=== PATIENT | male | born 1955 | race Caucasian/White ===

== ENCOUNTER 2020-03-04 04:35 | Outpatient (REF) | payer MEDICARE, MEDICAID, SELFPAY ==
[2020-03-04 10:43] LABS: INTERNATIONAL NORM RATIO 4.7 (0.9-1.1); Prothrombin Time 57.2 SEC (10.8-13.0)
== END 2020-03-04 04:36 | disposition home or self-care (01) ==
LOC: HO.LHD 04:35
PROVIDERS: Visit Provider Internal Medicine
DX: I82.90 Acute embolism and thrombosis of unspecified vein (principal); Z79.01 Long term (current) use of anticoagulants
CPT/HCPCS: 36415; 85610

== ENCOUNTER 2020-03-05 02:25 | Outpatient (REF) | payer MEDICARE, MEDICAID, SELFPAY ==
[2020-03-05 11:35] LABS: INTERNATIONAL NORM RATIO 4.5 (0.9-1.1); Prothrombin Time 54.3 SEC (10.8-13.0)
== END 2020-03-05 02:26 | disposition home or self-care (01) ==
LOC: HO.LHD 02:25
PROVIDERS: Visit Provider Internal Medicine
DX: I82.90 Acute embolism and thrombosis of unspecified vein (principal)
CPT/HCPCS: 36415; 85610

== ENCOUNTER 2020-03-08 | Outpatient (REF) | payer MEDICARE, MEDICAID, OTHER, SELFPAY ==
[2020-03-08 11:11] LABS: INTERNATIONAL NORM RATIO 2.4 (0.9-1.1); Prothrombin Time 28.8 SEC (10.8-13.0)
== END 2020-03-08 00:01 | disposition home or self-care (01) ==
LOC: HO.LHD
PROVIDERS: Visit Provider Internal Medicine
DX: I82.90 Acute embolism and thrombosis of unspecified vein (principal)
CPT/HCPCS: 36415; 85610

== ENCOUNTER 2020-03-15 07:54 | Outpatient (REF) | payer MEDICARE, MEDICAID, SELFPAY ==
[2020-03-15 11:06] LABS: INTERNATIONAL NORM RATIO 4.2 (0.9-1.1); Prothrombin Time 50.4 SEC (10.8-13.0)
== END 2020-03-15 07:55 | disposition home or self-care (01) ==
LOC: HO.LHD 07:54
PROVIDERS: Visit Provider Internal Medicine
DX: I82.90 Acute embolism and thrombosis of unspecified vein (principal)
CPT/HCPCS: 36415; 85610

== ENCOUNTER 2020-03-16 04:04 | Outpatient (REF) | payer MEDICARE, MEDICAID, SELFPAY ==
[2020-03-16 11:03] LABS: INTERNATIONAL NORM RATIO 4.5 (0.9-1.1); Prothrombin Time 53.9 SEC (10.8-13.0)
== END 2020-03-16 04:05 | disposition home or self-care (01) ==
LOC: HO.LHD 04:04
PROVIDERS: Visit Provider Internal Medicine
DX: I82.90 Acute embolism and thrombosis of unspecified vein (principal)
CPT/HCPCS: 36415; 85610

== ENCOUNTER 2020-03-18 04:12 | Outpatient (REF) | payer MEDICARE, MEDICAID, SELFPAY ==
[2020-03-18 11:07] LABS: Prothrombin Time 24.2 SEC (10.8-13.0)
== END 2020-03-18 04:13 | disposition home or self-care (01) ==
LOC: HO.LHD 04:12
PROVIDERS: Visit Provider Internal Medicine
DX: I82.90 Acute embolism and thrombosis of unspecified vein (principal)
CPT/HCPCS: 36415; 85610

== ENCOUNTER 2020-03-25 06:46 | Outpatient (REF) | payer MEDICARE, MEDICAID, SELFPAY ==
[2020-03-25 10:58] LABS: INTERNATIONAL NORM RATIO 2.1 (0.9-1.1); Prothrombin Time 25.6 SEC (10.8-13.0)
== END 2020-03-25 06:47 | disposition home or self-care (01) ==
LOC: HO.LHD 06:46
PROVIDERS: Visit Provider Internal Medicine
DX: I82.90 Acute embolism and thrombosis of unspecified vein (principal)
CPT/HCPCS: 36415; 85610

== ENCOUNTER 2020-04-29 | Outpatient (REF) | payer MEDICARE, MEDICAID, OTHER, SELFPAY ==
[2020-04-29 11:13] LABS: INTERNATIONAL NORM RATIO 4.4 (0.9-1.1); Prothrombin Time 53.5 SEC (10.8-13.0)
== END 2020-04-29 00:01 | disposition home or self-care (01) ==
LOC: HO.LHD
PROVIDERS: Visit Provider Internal Medicine
DX: I82.90 Acute embolism and thrombosis of unspecified vein (principal); Z79.01 Long term (current) use of anticoagulants
CPT/HCPCS: 36415; 85610

== ENCOUNTER 2020-04-30 08:46 | Outpatient (REF) | payer MEDICARE, MEDICAID, SELFPAY ==
[2020-04-30 11:37] LABS: INTERNATIONAL NORM RATIO 4.6 (0.9-1.1); Prothrombin Time 55.8 SEC (10.8-13.0)
== END 2020-04-30 08:47 | disposition home or self-care (01) ==
LOC: HO.LHD 08:46
PROVIDERS: Visit Provider Internal Medicine
DX: I82.90 Acute embolism and thrombosis of unspecified vein (principal)
CPT/HCPCS: 36415; 85610

== ENCOUNTER 2020-05-03 06:44 | Outpatient (REF) | payer MEDICARE, MEDICAID, SELFPAY ==
[2020-05-03 10:50] LABS: INTERNATIONAL NORM RATIO 1.9 (0.9-1.1); Prothrombin Time 22.5 SEC (10.8-13.0)
== END 2020-05-03 06:45 | disposition home or self-care (01) ==
LOC: HO.LHD 06:44
PROVIDERS: Visit Provider Internal Medicine
DX: I82.90 Acute embolism and thrombosis of unspecified vein (principal)
CPT/HCPCS: 36415; 85610

== ENCOUNTER 2020-05-10 | Outpatient (REF) | payer MEDICARE, OTHER, SELFPAY ==
[2020-05-10 11:18] LABS: INTERNATIONAL NORM RATIO 1.9 (0.9-1.1); Prothrombin Time 22.6 SEC (10.8-13.0)
== END 2020-05-10 00:01 ==
LOC: HO.LHD
PROVIDERS: Visit Provider Internal Medicine
DX: I82.90 Acute embolism and thrombosis of unspecified vein (principal); Z79.01 Long term (current) use of anticoagulants
CPT/HCPCS: 36415; 85610

== ENCOUNTER 2020-05-24 08:08 | Outpatient (REF) | payer MEDICARE, OTHER, SELFPAY ==
[2020-05-24 11:50] LABS: INTERNATIONAL NORM RATIO 2.3 (0.9-1.1); Prothrombin Time 27.2 SEC (10.8-13.0)
== END 2020-05-24 08:09 | disposition home or self-care (01) ==
LOC: HO.LHD 08:08
PROVIDERS: Visit Provider Internal Medicine
DX: I82.90 Acute embolism and thrombosis of unspecified vein (principal); Z79.01 Long term (current) use of anticoagulants
CPT/HCPCS: 36415; 85610

== ENCOUNTER 2020-05-31 | Outpatient (REF) | payer MEDICARE, OTHER, SELFPAY ==
[2020-05-31 11:22] LABS: INTERNATIONAL NORM RATIO 3.4 (0.9-1.1); Prothrombin Time 40.5 SEC (10.8-13.0)
== END 2020-05-31 00:01 ==
LOC: HO.LHD
PROVIDERS: Visit Provider Internal Medicine
DX: I82.90 Acute embolism and thrombosis of unspecified vein (principal); Z79.01 Long term (current) use of anticoagulants
CPT/HCPCS: 36415; 85610

== ENCOUNTER 2020-06-03 | Outpatient (REF) | payer MEDICARE, MEDICAID, OTHER, SELFPAY ==
[2020-06-03 11:31] LABS: INTERNATIONAL NORM RATIO 1.3 (0.9-1.1)
== END 2020-06-03 00:01 | disposition home or self-care (01) ==
LOC: HO.LHD
PROVIDERS: Visit Provider Internal Medicine
DX: I82.90 Acute embolism and thrombosis of unspecified vein (principal); Z79.01 Long term (current) use of anticoagulants
CPT/HCPCS: 36415; 85610

== ENCOUNTER 2020-06-11 | Outpatient (REF) | payer MEDICARE, MEDICAID, OTHER, SELFPAY ==
[2020-06-11 11:11] LABS: INTERNATIONAL NORM RATIO 1.1 (0.9-1.1); Prothrombin Time 12.9 SEC (10.8-13.0)
[2020-06-11 11:36] LABS: Anion Gap 17 (12-20); Blood Urea Nitrogen 61 mg/dL (9-16); Calcium 8.8 mg/dL (8.4-10.2); Carbon Dioxide 29 mmol/L (22-29); Chloride 95 mmol/L (96-108); Cholesterol 108 mg/dL; Estimated Glomerular Filt Rate 17; Glucose Random 135 mg/dL (60-115); HDL Cholesterol 33 mg/dL; LDL Cholesterol Calculated 44 mg/dl; Sodium 137 mmol/L (135-145); Triglycerides 155 mg/dL
== END 2020-06-11 00:01 | disposition home or self-care (01) ==
LOC: HO.LHD
PROVIDERS: Visit Provider Internal Medicine
DX: I48.91 Unspecified atrial fibrillation (principal); E78.5 Hyperlipidemia, unspecified; I82.90 Acute embolism and thrombosis of unspecified vein
CPT/HCPCS: 36415; 80048; 80061; 85610

== ENCOUNTER 2020-06-14 | Outpatient (REF) | payer MEDICARE, MEDICAID, OTHER, SELFPAY ==
[2020-06-14 11:22] LABS: INTERNATIONAL NORM RATIO 1.3 (0.9-1.1); Prothrombin Time 15.3 SEC (10.8-13.0)
== END 2020-06-14 00:01 | disposition home or self-care (01) ==
LOC: HO.LHD
PROVIDERS: Visit Provider Internal Medicine
DX: I82.90 Acute embolism and thrombosis of unspecified vein (principal)
CPT/HCPCS: 36415; 85610

== ENCOUNTER 2020-06-21 13:26 | Outpatient (REF) | payer MEDICARE, MEDICAID, OTHER, SELFPAY ==
[2020-06-21 11:03] LABS: INTERNATIONAL NORM RATIO 2.3 (0.9-1.1); Prothrombin Time 27.4 SEC (10.8-13.0)
== END 2020-06-21 13:27 | disposition home or self-care (01) ==
LOC: HO.LHD 13:26
PROVIDERS: Visit Provider Internal Medicine
DX: I82.90 Acute embolism and thrombosis of unspecified vein (principal)
CPT/HCPCS: 36415; 85610

== ENCOUNTER 2020-07-06 00:57 | Outpatient (REF) | payer MEDICARE, MEDICAID, OTHER, SELFPAY ==
[2020-07-06 10:56] LABS: INTERNATIONAL NORM RATIO 1.9 (0.9-1.1); Prothrombin Time 22.5 SEC (10.8-13.0)
== END 2020-07-06 00:58 | disposition home or self-care (01) ==
LOC: HO.LHD 00:57
PROVIDERS: Visit Provider Internal Medicine
DX: I82.90 Acute embolism and thrombosis of unspecified vein (principal)
CPT/HCPCS: 36415; 85610

== ENCOUNTER 2020-07-20 06:00 | Outpatient (REF) | payer MEDICARE, MEDICAID, OTHER, SELFPAY ==
[2020-07-20 11:22] LABS: INTERNATIONAL NORM RATIO 2.4 (0.9-1.1); Prothrombin Time 28.2 SEC (10.8-13.0)
== END 2020-07-20 06:01 | disposition home or self-care (01) ==
LOC: HO.LHD 06:00
PROVIDERS: Visit Provider Internal Medicine
DX: I82.90 Acute embolism and thrombosis of unspecified vein (principal)
CPT/HCPCS: 36415; 85610

== ENCOUNTER 2020-08-09 07:07 | Outpatient (REF) | payer MEDICARE, MEDICAID, OTHER, SELFPAY ==
[2020-08-09 11:06] LABS: Prothrombin Time 12.2 SEC (10.8-13.0)
== END 2020-08-09 07:08 | disposition home or self-care (01) ==
LOC: HO.LHD 07:07
PROVIDERS: Visit Provider Internal Medicine
DX: I48.91 Unspecified atrial fibrillation (principal)
CPT/HCPCS: 36415; 85610

== ENCOUNTER 2020-08-19 07:12 | Outpatient (REF) | payer MEDICARE, MEDICAID, OTHER, SELFPAY ==
[2020-08-19 11:44] LABS: INTERNATIONAL NORM RATIO 1.7 (0.9-1.1); Prothrombin Time 20.1 SEC (10.8-13.0)
== END 2020-08-19 07:13 | disposition home or self-care (01) ==
LOC: HO.LHD 07:12
PROVIDERS: Visit Provider Internal Medicine
DX: I48.91 Unspecified atrial fibrillation (principal)
CPT/HCPCS: 36415; 85610

== ENCOUNTER 2020-09-02 02:02 | Outpatient (REF) | payer MEDICARE, OTHER, SELFPAY ==
[2020-09-02 13:17] LABS: INTERNATIONAL NORM RATIO 2.7 (0.9-1.1); Prothrombin Time 31.9 SEC (10.8-13.0)
== END 2020-09-02 02:03 | disposition home or self-care (01) ==
LOC: HO.LHD 02:02
PROVIDERS: Visit Provider Internal Medicine
DX: I48.91 Unspecified atrial fibrillation (principal)
CPT/HCPCS: 36415; 85610

== ENCOUNTER 2020-09-16 00:24 | Outpatient (REF) | payer MEDICARE, OTHER, SELFPAY ==
[2020-09-16 10:09] LABS: INTERNATIONAL NORM RATIO 3.2 (0.9-1.1); Prothrombin Time 38.7 SEC (10.8-13.0)
[2020-09-16 10:25] LABS: Anion Gap 13 (12-20); Blood Urea Nitrogen 61 mg/dL (9-16); Calcium 9.1 mg/dL (8.4-10.2); Carbon Dioxide 28 mmol/L (22-29); Chloride 103 mmol/L (96-108); Estimated Glomerular Filt Rate 20; Glucose Random 110 mg/dL (60-115); Potassium 4.8 mmol/L (3.3-5.1); Sodium 139 mmol/L (135-145)
== END 2020-09-16 00:25 | disposition home or self-care (01) ==
LOC: HO.LHD 00:24
PROVIDERS: Internal Medicine Cardiovascular Disease; Visit Provider Internal Medicine
DX: I48.91 Unspecified atrial fibrillation (principal)
CPT/HCPCS: 36415; 80048; 85610

== ENCOUNTER 2020-09-23 01:06 | Outpatient (REF) | payer MEDICARE, OTHER, SELFPAY ==
[2020-09-23 11:22] LABS: Prothrombin Time 36.3 SEC (10.8-13.0)
== END 2020-09-23 01:07 | disposition home or self-care (01) ==
LOC: HO.LHD 01:06
PROVIDERS: Visit Provider Internal Medicine
DX: I48.91 Unspecified atrial fibrillation (principal)
CPT/HCPCS: 36415; 85610

== ENCOUNTER 2020-09-30 00:31 | Outpatient (REF) | payer MEDICARE, MEDICAID, OTHER, SELFPAY ==
[2020-09-30 11:40] LABS: INTERNATIONAL NORM RATIO 2.8 (0.9-1.1); Prothrombin Time 33.2 SEC (10.8-13.0)
== END 2020-09-30 00:32 | disposition home or self-care (01) ==
LOC: HO.LHD 00:31
PROVIDERS: Visit Provider Internal Medicine
DX: I48.91 Unspecified atrial fibrillation (principal)
CPT/HCPCS: 36415; 85610

== ENCOUNTER 2020-10-14 01:18 | Outpatient (REF) | payer MEDICARE, MEDICAID, OTHER, SELFPAY ==
[2020-10-14 11:36] LABS: INTERNATIONAL NORM RATIO 3.7 (0.9-1.1); Prothrombin Time 44.3 SEC (10.8-13.0)
== END 2020-10-14 01:19 | disposition home or self-care (01) ==
LOC: HO.LHD 01:18
PROVIDERS: Visit Provider Internal Medicine
DX: I48.91 Unspecified atrial fibrillation (principal)
CPT/HCPCS: 36415; 85610

== ENCOUNTER 2020-10-19 07:55 | Outpatient (REF) | payer MEDICARE, MEDICAID, OTHER, SELFPAY ==
[2020-10-19 11:22] LABS: INTERNATIONAL NORM RATIO 1.3 (0.9-1.1)
== END 2020-10-19 07:56 | disposition home or self-care (01) ==
LOC: HO.LHD 07:55
PROVIDERS: Visit Provider Internal Medicine
DX: I48.91 Unspecified atrial fibrillation (principal)
CPT/HCPCS: 36415; 85610

== ENCOUNTER 2020-10-26 01:09 | Outpatient (REF) | payer MEDICARE, MEDICAID, OTHER, SELFPAY ==
[2020-10-26 11:26] LABS: Prothrombin Time 24.4 SEC (10.8-13.0)
== END 2020-10-26 01:10 | disposition home or self-care (01) ==
LOC: HO.LHD 01:09
PROVIDERS: Visit Provider Internal Medicine
DX: I48.91 Unspecified atrial fibrillation (principal)
CPT/HCPCS: 36415; 85610

== ENCOUNTER 2020-11-09 06:53 | Outpatient (REF) | payer MEDICARE, OTHER, SELFPAY ==
[2020-11-09 10:57] LABS: INTERNATIONAL NORM RATIO 2.2 (0.9-1.1)
== END 2020-11-09 06:54 | disposition home or self-care (01) ==
LOC: HO.LHD 06:53
PROVIDERS: Visit Provider Internal Medicine
DX: I48.91 Unspecified atrial fibrillation (principal)
CPT/HCPCS: 36415; 85610

== ENCOUNTER 2020-12-07 | Outpatient (REF) | payer MEDICARE, OTHER, SELFPAY ==
[2020-12-07 10:24] LABS: INTERNATIONAL NORM RATIO 1.9 (0.9-1.1); Prothrombin Time 22.4 SEC (9.9-13.0)
== END 2020-12-07 00:01 | disposition home or self-care (01) ==
LOC: HO.LHD
PROVIDERS: Visit Provider Internal Medicine
DX: I48.91 Unspecified atrial fibrillation (principal)
CPT/HCPCS: 36415; 85610

== ENCOUNTER 2021-01-04 06:59 | Outpatient (REF) | payer MEDICARE, OTHER, SELFPAY ==
[2021-01-04 10:24] LABS: INTERNATIONAL NORM RATIO 2.1 (0.9-1.1); Prothrombin Time 24.8 SEC (9.9-13.0)
== END 2021-01-04 07:00 | disposition home or self-care (01) ==
LOC: HO.LHD 06:59
PROVIDERS: Visit Provider Internal Medicine
DX: I48.91 Unspecified atrial fibrillation (principal)
CPT/HCPCS: 36415; 85610

== ENCOUNTER 2021-02-01 07:03 | Outpatient (REF) | payer MEDICARE, OTHER, SELFPAY ==
[2021-02-01 11:13] LABS: INTERNATIONAL NORM RATIO 1.7 (0.9-1.1); Prothrombin Time 19.8 SEC (9.9-13.0)
== END 2021-02-01 07:04 | disposition home or self-care (01) ==
LOC: HO.LHD 07:03
PROVIDERS: Visit Provider Internal Medicine
DX: I48.91 Unspecified atrial fibrillation (principal)
CPT/HCPCS: 36415; 85610

== ENCOUNTER 2021-02-15 14:39 | Outpatient (REF) | payer MEDICARE, OTHER, SELFPAY ==
[2021-02-15 10:08] LABS: Prothrombin Time 22.9 SEC (9.9-13.0)
== END 2021-02-15 14:40 | disposition home or self-care (01) ==
LOC: HO.LHD 14:39
PROVIDERS: Visit Provider Internal Medicine
DX: I48.91 Unspecified atrial fibrillation (principal)
CPT/HCPCS: 36415; 85610

== ENCOUNTER 2021-03-18 07:41 | Outpatient (REF) | payer MEDICARE, OTHER, SELFPAY | END 2021-03-18 07:42 | disposition home or self-care (01) | LOC: HO.LHD 07:41 | PROVIDERS: Visit Provider Internal Medicine | DX: I48.91 Unspecified atrial fibrillation (principal) | CPT/HCPCS: 36415; 85610 ==

== ENCOUNTER 2021-04-13 07:13 | Outpatient (REF) | payer MEDICARE, OTHER, SELFPAY ==
[2021-04-13 11:14] LABS: INTERNATIONAL NORM RATIO 2.3 (0.9-1.1); Prothrombin Time 26.8 SEC (9.9-13.0)
== END 2021-04-13 07:14 | disposition home or self-care (01) ==
LOC: HO.LHD 07:13
PROVIDERS: Visit Provider Internal Medicine
DX: I48.91 Unspecified atrial fibrillation (principal)
CPT/HCPCS: 36415; 85610

== ENCOUNTER 2021-05-11 06:12 | Outpatient (REF) | payer MEDICARE, OTHER, SELFPAY ==
[2021-05-11 11:23] LABS: INTERNATIONAL NORM RATIO 1.7 (0.9-1.1)
== END 2021-05-11 06:13 | disposition home or self-care (01) ==
LOC: HO.LHD 06:12
PROVIDERS: Visit Provider Internal Medicine
DX: I48.91 Unspecified atrial fibrillation (principal)
CPT/HCPCS: 36415; 85610

== ENCOUNTER 2021-05-18 10:41 | Outpatient (REF) | payer MEDICARE, OTHER, SELFPAY ==
[2021-05-18 10:27] LABS: INTERNATIONAL NORM RATIO 1.6 (0.9-1.1); Prothrombin Time 18.9 SEC (9.9-13.0)
== END 2021-05-18 10:42 | disposition home or self-care (01) ==
LOC: HO.LHD 10:41
PROVIDERS: Visit Provider Internal Medicine
DX: I48.91 Unspecified atrial fibrillation (principal)
CPT/HCPCS: 36415; 85610

== ENCOUNTER 2021-05-25 10:45 | Outpatient (REF) | payer MEDICARE, OTHER, SELFPAY ==
[2021-05-25 11:25] LABS: INTERNATIONAL NORM RATIO 2.3 (0.9-1.1); Prothrombin Time 26.9 SEC (9.9-13.0)
== END 2021-05-25 10:46 | disposition home or self-care (01) ==
LOC: HO.LHD 10:45
PROVIDERS: Visit Provider Internal Medicine
DX: I48.91 Unspecified atrial fibrillation (principal); Z79.01 Long term (current) use of anticoagulants
CPT/HCPCS: 36415; 85610

== ENCOUNTER 2021-06-08 07:57 | Outpatient (REF) | payer MEDICARE, OTHER, SELFPAY ==
[2021-06-08 12:40] LABS: INTERNATIONAL NORM RATIO 2.6 (0.9-1.1); Prothrombin Time 29.6 SEC (9.9-13.0)
== END 2021-06-08 07:58 | disposition home or self-care (01) ==
LOC: HO.LHD 07:57
PROVIDERS: Visit Provider Internal Medicine
DX: I48.91 Unspecified atrial fibrillation (principal)
CPT/HCPCS: 36415; 85610

== ENCOUNTER 2021-06-22 12:05 | Outpatient (REF) | payer MEDICARE, OTHER, SELFPAY ==
[2021-06-22 12:42] LABS: INTERNATIONAL NORM RATIO 1.5 (0.9-1.1)
== END 2021-06-22 12:06 | disposition home or self-care (01) ==
LOC: HO.LHD 12:05
PROVIDERS: Visit Provider Internal Medicine
DX: I48.91 Unspecified atrial fibrillation (principal)
CPT/HCPCS: 36415; 85610

== ENCOUNTER 2021-06-28 07:55 | Outpatient (REF) | payer MEDICARE, OTHER, SELFPAY ==
[2021-06-27 11:24] LABS: INTERNATIONAL NORM RATIO 2.2 (0.9-1.1); Prothrombin Time 24.9 SEC (9.9-13.0)
== END 2021-06-28 07:56 | disposition home or self-care (01) ==
LOC: HO.LHD 07:55
PROVIDERS: Visit Provider Internal Medicine
DX: I48.91 Unspecified atrial fibrillation (principal)
CPT/HCPCS: 36415; 85610

== ENCOUNTER 2021-07-25 06:10 | Outpatient (REF) | payer MEDICARE, OTHER, SELFPAY ==
[2021-07-25 12:13] LABS: INTERNATIONAL NORM RATIO 3.1 (0.9-1.1); Prothrombin Time 36.5 SEC (9.9-13.0)
== END 2021-07-25 06:11 | disposition home or self-care (01) ==
LOC: HO.LHD 06:10
PROVIDERS: Visit Provider Internal Medicine
DX: I48.91 Unspecified atrial fibrillation (principal)
CPT/HCPCS: 36415; 85610

== ENCOUNTER 2021-08-01 11:39 | Outpatient (REF) | payer MEDICARE, OTHER, SELFPAY ==
[2021-08-01 12:22] LABS: INTERNATIONAL NORM RATIO 2.8 (0.9-1.1); Prothrombin Time 32.9 SEC (9.9-13.0)
== END 2021-08-01 11:40 | disposition home or self-care (01) ==
LOC: HO.LHD 11:39
PROVIDERS: Visit Provider Internal Medicine
DX: I48.91 Unspecified atrial fibrillation (principal)
CPT/HCPCS: 36415; 85610

== ENCOUNTER 2021-09-01 07:25 | Outpatient (REF) | payer MEDICARE, OTHER, SELFPAY ==
[2021-09-01 11:06] LABS: INTERNATIONAL NORM RATIO 2.3 (0.9-1.1); Prothrombin Time 26.6 SEC (9.9-13.0)
== END 2021-09-01 07:26 | disposition home or self-care (01) ==
LOC: HO.LHD 07:25
PROVIDERS: Visit Provider Internal Medicine
DX: I48.91 Unspecified atrial fibrillation (principal)
CPT/HCPCS: 36415; 85610

== ENCOUNTER 2021-09-29 13:18 | Outpatient (REF) | payer MEDICARE, OTHER, SELFPAY ==
[2021-09-29 11:48] LABS: Prothrombin Time 23.1 SEC (9.9-13.0)
== END 2021-09-29 13:19 | disposition home or self-care (01) ==
LOC: HO.LHD 13:18
PROVIDERS: Visit Provider Internal Medicine
DX: I48.91 Unspecified atrial fibrillation (principal)
CPT/HCPCS: 36415; 85610

== ENCOUNTER 2021-10-31 07:13 | Outpatient (REF) | payer MEDICARE, OTHER, SELFPAY ==
[2021-10-31 11:43] LABS: Prothrombin Time 60.7 SEC (9.9-13.0)
[2021-10-31 12:13] LABS: INTERNATIONAL NORM RATIO 5.2 (0.9-1.1)
== END 2021-10-31 07:14 | disposition home or self-care (01) ==
LOC: HO.LHD 07:13
PROVIDERS: Visit Provider Internal Medicine
DX: I48.91 Unspecified atrial fibrillation (principal)
CPT/HCPCS: 36415; 85610

== ENCOUNTER 2021-11-02 07:45 | Outpatient (REF) | payer MEDICARE, OTHER, SELFPAY ==
[2021-11-02 12:55] LABS: INTERNATIONAL NORM RATIO 3.8 (0.9-1.1)
== END 2021-11-02 07:46 | disposition home or self-care (01) ==
LOC: HO.LHD 07:45
PROVIDERS: Visit Provider Internal Medicine
DX: I48.91 Unspecified atrial fibrillation (principal)
CPT/HCPCS: 36415; 85610

== ENCOUNTER 2021-11-03 06:03 | Outpatient (REF) | payer MEDICARE, OTHER, SELFPAY ==
[2021-11-03 14:03] LABS: INTERNATIONAL NORM RATIO 2.2 (0.9-1.1); Prothrombin Time 25.8 SEC (9.9-13.0)
== END 2021-11-03 06:04 | disposition home or self-care (01) ==
LOC: HO.LHD 06:03
PROVIDERS: Visit Provider Internal Medicine
DX: I48.91 Unspecified atrial fibrillation (principal)
CPT/HCPCS: 36415; 85610

== ENCOUNTER 2021-11-10 15:07 | Outpatient (REF) | payer MEDICARE, OTHER, SELFPAY ==
[2021-11-10 12:02] LABS: INTERNATIONAL NORM RATIO 2.8 (0.9-1.1); Prothrombin Time 32.9 SEC (9.9-13.0)
== END 2021-11-10 15:08 | disposition home or self-care (01) ==
LOC: HO.LHD 15:07
PROVIDERS: Visit Provider Internal Medicine
DX: I48.91 Unspecified atrial fibrillation (principal)
CPT/HCPCS: 36415; 85610

== ENCOUNTER 2021-11-24 10:15 | Outpatient (REF) | payer MEDICARE, OTHER, SELFPAY | END 2021-11-24 10:16 | disposition home or self-care (01) | LOC: HO.LHD 10:15 | PROVIDERS: Visit Provider Internal Medicine | DX: Z13.89 Encounter for screening for other disorder (principal) ==

== ENCOUNTER 2021-11-25 07:06 | Outpatient (REF) | payer MEDICARE, OTHER, SELFPAY ==
[2021-11-25 13:30] LABS: INTERNATIONAL NORM RATIO 2.8 (0.9-1.1); Prothrombin Time 33.7 SEC (10.0-13.1)
== END 2021-11-25 07:07 | disposition home or self-care (01) ==
LOC: HO.LHD 07:06
PROVIDERS: Visit Provider Internal Medicine
DX: I48.91 Unspecified atrial fibrillation (principal)
CPT/HCPCS: 36415; 85610

== ENCOUNTER 2021-12-26 10:14 | Outpatient (REF) | payer MEDICARE, OTHER, SELFPAY ==
[2021-12-26 10:03] LABS: INTERNATIONAL NORM RATIO 3.2 (0.9-1.1); Prothrombin Time 38.1 SEC (10.0-13.1)
== END 2021-12-26 10:15 | disposition home or self-care (01) ==
LOC: HO.LHD 10:14
PROVIDERS: Visit Provider Internal Medicine
DX: I48.91 Unspecified atrial fibrillation (principal)
CPT/HCPCS: 36415; 85610

== ENCOUNTER 2022-01-02 11:06 | Outpatient (REF) | payer MEDICARE, OTHER, SELFPAY ==
[2022-01-02 12:06] LABS: INTERNATIONAL NORM RATIO 2.6 (0.9-1.1); Prothrombin Time 31.3 SEC (10.0-13.1)
== END 2022-01-02 11:07 | disposition home or self-care (01) ==
LOC: HO.LHD 11:06
PROVIDERS: Visit Provider Internal Medicine
DX: I48.91 Unspecified atrial fibrillation (principal)
CPT/HCPCS: 36415; 85610

== ENCOUNTER 2022-02-02 10:12 | Outpatient (REF) | payer MEDICARE, OTHER, SELFPAY ==
[2022-02-02 12:30] LABS: INTERNATIONAL NORM RATIO 1.8 (0.9-1.1); Prothrombin Time 21.5 SEC (10.0-13.1)
== END 2022-02-02 10:13 | disposition home or self-care (01) ==
LOC: HO.LHD 10:12
PROVIDERS: Visit Provider Internal Medicine
DX: I48.91 Unspecified atrial fibrillation (principal)
CPT/HCPCS: 36415; 85610

== ENCOUNTER 2022-03-03 06:22 | Outpatient (REF) | payer MEDICARE, OTHER, SELFPAY ==
[2022-03-03 12:12] LABS: INTERNATIONAL NORM RATIO 3.3 (0.9-1.1); Prothrombin Time 40.3 SEC (10.0-13.1)
== END 2022-03-03 06:23 | disposition home or self-care (01) ==
LOC: HO.LHD 06:22
PROVIDERS: Visit Provider Internal Medicine
DX: I48.91 Unspecified atrial fibrillation (principal)
CPT/HCPCS: 36415; 85610

== ENCOUNTER 2022-03-06 07:10 | Outpatient (REF) | payer MEDICARE, SELFPAY ==
[2022-03-06 10:08] LABS: INTERNATIONAL NORM RATIO 2.7 (0.9-1.1); Prothrombin Time 32.3 SEC (10.0-13.1)
== END 2022-03-06 07:11 | disposition home or self-care (01) ==
LOC: HO.LHD 07:10
PROVIDERS: Visit Provider Internal Medicine
DX: I48.91 Unspecified atrial fibrillation (principal)
CPT/HCPCS: 36415; 85610

== ENCOUNTER 2022-04-05 10:02 | Outpatient (REF) | payer MEDICARE, MEDICAID, SELFPAY ==
[2022-04-05 10:37] LABS: INTERNATIONAL NORM RATIO 2.2 (0.9-1.1); Prothrombin Time 25.8 SEC (10.0-13.1)
== END 2022-04-05 10:03 | disposition home or self-care (01) ==
LOC: HO.LHD 10:02
PROVIDERS: Visit Provider Internal Medicine
DX: I48.91 Unspecified atrial fibrillation (principal)
CPT/HCPCS: 36415; 85610

== ENCOUNTER 2022-05-03 11:11 | Outpatient (REF) | payer MEDICARE, MEDICAID, SELFPAY ==
[2022-05-03 10:44] LABS: INTERNATIONAL NORM RATIO 2.6 (0.9-1.1); Prothrombin Time 30.8 SEC (10.0-13.1)
== END 2022-05-03 11:12 | disposition home or self-care (01) ==
LOC: HO.LHD 11:11
PROVIDERS: Visit Provider Internal Medicine
DX: I48.91 Unspecified atrial fibrillation (principal)
CPT/HCPCS: 36415; 85610

== ENCOUNTER 2022-05-31 10:49 | Outpatient (REF) | payer MEDICARE, MEDICAID, SELFPAY ==
[2022-05-31 10:08] LABS: MANUAL DIFF FLAG NO
[2022-05-31 10:10] LABS: Basophils Absolute Auto 0.1 X10*3/uL (0.0-0.2); Basophils Percent Auto 1.2 % (0-2); Eosinophils Absolute Auto 0.5 X10*3/uL (0.0-0.4); Eosinophils Percent Auto 7.2 % (0-4); Hematocrit 47.6 % (42.0-52.0); Hemoglobin 15.4 g/dl (14.0-18.0); Imm Gran Abs Auto 0.03 X10*3/uL (0.00-0.03); Imm Gran Pct Auto 0.5 % (0.0-0.4); Lymphocytes Absolute Auto 1.9 X10*3/uL (1.2-4.9); Lymphocytes Percent Auto 28.2 % (20-40); Mean Corpuscular HGB Conc 32.4 g/dl (31.0-36.0); Mean Corpuscular Hemoglobin 29.6 pg (27.0-33.0); Mean Corpuscular Volume 91.5 fL (80.0-98.0); Mean Platelet Volume 10.2 fL (9.4-12.4); Monocytes Absolute Auto 0.6 X10*3/uL (0.1-1.2); Monocytes Percent Auto 8.7 % (2-11); Neutrophils Absolute Auto 3.6 x10*3/uL (2.0-8.3); Neutrophils Percent Auto 54.2 % (45-73); Platelet Count 198 X10*3/uL (160-400); Red Cell Distribution Width 14.5 % (11.0-16.0); White Blood Count 6.7 X10*3/uL (4.8-10.8)
[2022-05-31 10:15] LABS: INTERNATIONAL NORM RATIO 2.3 (0.9-1.1); Prothrombin Time 27.6 SEC (10.0-13.1)
[2022-05-31 10:37] LABS: Estimated Average Glucose 111 mg/dL; Hemoglobin A1c % 5.5 %
[2022-05-31 11:50] LABS: Alanine Aminotransferase 23 U/L (0-40); Alkaline Phosphatase 57 U/L (39-117); Anion Gap 12 (12-20); Aspartate Amino Transferase 21 U/L (5-37); Bilirubin Direct 0.2 mg/dL (0.0-0.5); Bilirubin Total 0.6 mg/dL (0.0-1.0); Blood Urea Nitrogen 17 mg/dL (9-16); Carbon Dioxide 27 mmol/L (22-29); Chloride 107 mmol/L (96-108); Cholesterol 148 mg/dL; Estimated Glomerular Filt Rate 47; Glucose Fasting 83 mg/dL (60-99); HDL Cholesterol 44 mg/dL; Potassium 5.3 mmol/L (3.3-5.1); Sodium 141 mmol/L (135-145); Total Protein 7.2 g/dL (6.5-8.0)
[2022-05-31 12:20] LABS: Prostate Specific Antigen Scr 0.89 ng/mL (<0.05-4.0)
[2022-05-31 13:02] LABS: Albumin Level 4.1 g/dL (3.5-5.0); LDL Cholesterol Calculated 77 mg/dl; Triglycerides 135 mg/dL
== END 2022-05-31 10:50 | disposition home or self-care (01) ==
LOC: HO.LHD 10:49
PROVIDERS: Visit Provider Internal Medicine
DX: Z12.5 Encounter for screening for malignant neoplasm of prostate (principal); E11.9 Type 2 diabetes mellitus without complications; R53.83 Other fatigue; I48.91 Unspecified atrial fibrillation
CPT/HCPCS: 36415; 80051; 80061; 80076; 82565; 82947; 83036; 84153; 84520; 85025; 85610

== ENCOUNTER 2022-06-28 13:53 | Outpatient (REF) | payer MEDICARE, MEDICAID, SELFPAY ==
[2022-06-28 11:58] LABS: INTERNATIONAL NORM RATIO 2.5 (0.9-1.1); Prothrombin Time 29.4 SEC (10.0-13.1)
== END 2022-06-28 13:54 | disposition home or self-care (01) ==
LOC: HO.LHD 13:53
PROVIDERS: Visit Provider Internal Medicine
DX: I48.91 Unspecified atrial fibrillation (principal)
CPT/HCPCS: 36415; 85610

== ENCOUNTER 2022-07-26 10:31 | Outpatient (REF) | payer MEDICARE, MEDICAID, SELFPAY ==
[2022-07-26 09:43] LABS: INTERNATIONAL NORM RATIO 3.3 (0.9-1.1); Prothrombin Time 39.9 SEC (10.0-13.1)
== END 2022-07-26 10:32 | disposition home or self-care (01) ==
LOC: HO.LHD 10:31
PROVIDERS: Visit Provider Internal Medicine
DX: I48.91 Unspecified atrial fibrillation (principal)
CPT/HCPCS: 36415; 85610

== ENCOUNTER 2022-08-02 13:58 | Outpatient (REF) | payer MEDICARE, MEDICAID, SELFPAY ==
[2022-08-02 12:09] LABS: INTERNATIONAL NORM RATIO 2.5 (0.9-1.1); Prothrombin Time 29.9 SEC (10.0-13.1)
== END 2022-08-02 13:59 | disposition home or self-care (01) ==
LOC: HO.LHD 13:58
PROVIDERS: Visit Provider Internal Medicine
DX: I48.91 Unspecified atrial fibrillation (principal)
CPT/HCPCS: 36415; 85610

== ENCOUNTER 2022-09-06 | Outpatient (REF) | payer MEDICARE, MEDICAID, SELFPAY ==
[2022-09-06 11:50] LABS: INTERNATIONAL NORM RATIO 2.3 (0.9-1.1); Prothrombin Time 26.9 SEC (10.0-13.1)
== END 2022-09-06 00:01 | disposition home or self-care (01) ==
LOC: HO.LHD
PROVIDERS: Visit Provider Internal Medicine
DX: I48.91 Unspecified atrial fibrillation (principal)
CPT/HCPCS: 36415; 85610

== ENCOUNTER 2022-10-04 06:48 | Outpatient (REF) | payer MEDICARE, MEDICAID, SELFPAY ==
[2022-10-04 11:58] LABS: INTERNATIONAL NORM RATIO 2.6 (0.9-1.1); Prothrombin Time 30.6 SEC (10.0-13.1)
== END 2022-10-04 06:49 | disposition home or self-care (01) ==
LOC: HO.LHD 06:48
PROVIDERS: Visit Provider Internal Medicine
DX: I48.91 Unspecified atrial fibrillation (principal)
CPT/HCPCS: 36415; 85610

== ENCOUNTER 2022-10-10 07:29 | Outpatient (REF) | payer MEDICARE, MEDICAID, SELFPAY ==
[2022-10-10 11:46] LABS: INTERNATIONAL NORM RATIO 1.2 (0.9-1.1); Prothrombin Time 13.8 SEC (10.0-13.1)
== END 2022-10-10 07:30 | disposition home or self-care (01) ==
LOC: HO.LHD 07:29
PROVIDERS: Visit Provider Internal Medicine
DX: I48.91 Unspecified atrial fibrillation (principal)
CPT/HCPCS: 36415; 85610

== ENCOUNTER 2022-10-20 05:55 | Outpatient (REF) | payer MEDICARE, MEDICAID, SELFPAY ==
[2022-10-20 11:17] LABS: INTERNATIONAL NORM RATIO 1.4 (0.9-1.1); Prothrombin Time 15.7 SEC (10.0-13.1)
== END 2022-10-20 05:56 | disposition home or self-care (01) ==
LOC: HO.LHD 05:55
PROVIDERS: Visit Provider Internal Medicine
DX: I48.91 Unspecified atrial fibrillation (principal)
CPT/HCPCS: 36415; 85610

== ENCOUNTER 2022-10-23 08:02 | Outpatient (REF) | payer MEDICARE, MEDICAID, SELFPAY ==
[2022-10-23 12:19] LABS: Prothrombin Time 24.1 SEC (10.0-13.1)
== END 2022-10-23 08:03 | disposition home or self-care (01) ==
LOC: HO.LHD 08:02
PROVIDERS: Visit Provider Internal Medicine
DX: I48.91 Unspecified atrial fibrillation (principal)
CPT/HCPCS: 36415; 85610

== ENCOUNTER 2022-11-01 06:06 | Outpatient (REF) | payer MEDICARE, SELFPAY | END 2022-11-01 06:07 | disposition home or self-care (01) | LOC: HO.LHD 06:06 | PROVIDERS: Visit Provider Internal Medicine | DX: Z13.89 Encounter for screening for other disorder (principal) ==

== ENCOUNTER 2022-11-22 06:08 | Outpatient (REF) | payer MEDICARE, MEDICAID, SELFPAY | END 2022-11-22 06:09 | disposition home or self-care (01) | LOC: HO.LHD 06:08 | PROVIDERS: Visit Provider Internal Medicine | DX: I48.91 Unspecified atrial fibrillation (principal) | CPT/HCPCS: 36415; 85610 ==

== ENCOUNTER 2022-12-21 09:15 | Outpatient (REF) | payer MEDICARE, MEDICAID, OTHER, SELFPAY ==
[2022-12-21 11:57] LABS: Estimated Average Glucose 105 mg/dL; Hemoglobin A1c % 5.3 %
== END 2022-12-21 09:16 | disposition home or self-care (01) ==
LOC: HO.HMGCLDS 09:15
PROVIDERS: PCP Internal Medicine; Visit Provider Internal Medicine
DX: I48.91 Unspecified atrial fibrillation (principal)
CPT/HCPCS: 36415; 83036

== ENCOUNTER 2022-12-28 09:42 | Outpatient (REF) | payer MEDICARE, MEDICAID, OTHER, SELFPAY ==
[2022-12-28 13:15] LABS: INTERNATIONAL NORM RATIO 2.4 (0.9-1.1); Prothrombin Time 29.3 SEC (11.1-13.3)
== END 2022-12-28 09:43 | disposition home or self-care (01) ==
LOC: HO.HMGCLR 09:42
PROVIDERS: PCP Internal Medicine; Visit Provider Internal Medicine
DX: I48.91 Unspecified atrial fibrillation (principal)
CPT/HCPCS: 36415; 85610

== ENCOUNTER 2023-02-05 10:06 | Outpatient (REF) | payer MEDICARE, MEDICAID, OTHER, SELFPAY ==
[2023-02-05 14:06] LABS: INTERNATIONAL NORM RATIO 2.6 (0.9-1.1); Prothrombin Time 31.9 SEC (11.1-13.3)
[2023-02-05 14:31] LABS: Anion Gap 12 (12-20); Blood Urea Nitrogen 21 mg/dL (9-16); Calcium 9.6 mg/dL (8.4-10.2); Carbon Dioxide 26 mmol/L (22-29); Chloride 107 mmol/L (96-108); Estimated Glomerular Filt Rate 36; Glucose Random 96 mg/dL (60-115); Potassium 4.9 mmol/L (3.3-5.1); Sodium 140 mmol/L (135-145)
== END 2023-02-05 10:07 | disposition home or self-care (01) ==
LOC: HO.HMGCLR 10:06
PROVIDERS: PCP Internal Medicine; Visit Provider Internal Medicine
DX: N17.9 Acute kidney failure, unspecified (principal); R53.83 Other fatigue; I48.91 Unspecified atrial fibrillation
CPT/HCPCS: 36415; 80048; 85610

== ENCOUNTER 2023-03-13 10:21 | Outpatient (REF) | payer MEDICARE, MEDICAID, OTHER, SELFPAY ==
[2023-03-13 13:49] LABS: INTERNATIONAL NORM RATIO 2.6 (0.9-1.1); Prothrombin Time 31.9 SEC (11.1-13.3)
[2023-03-13 14:27] LABS: Estimated Average Glucose 105 mg/dL; Hemoglobin A1c % 5.3 % (<6.0)
== END 2023-03-13 10:22 | disposition home or self-care (01) ==
LOC: HO.HMGCLR 10:21
PROVIDERS: PCP Internal Medicine; Visit Provider Internal Medicine
DX: I48.91 Unspecified atrial fibrillation (principal); E11.9 Type 2 diabetes mellitus without complications
CPT/HCPCS: 36415; 83036; 85610

== ENCOUNTER 2023-05-16 10:25 | Outpatient (REF) | payer MEDICARE, MEDICAID, OTHER, SELFPAY ==
[2023-05-16 13:56] LABS: INTERNATIONAL NORM RATIO 2.5 (0.9-1.1); Prothrombin Time 30.5 SEC (11.1-13.3)
== END 2023-05-16 10:26 | disposition home or self-care (01) ==
LOC: HO.HMGCLDS 10:25
PROVIDERS: PCP Internal Medicine; Visit Provider Internal Medicine
DX: I48.91 Unspecified atrial fibrillation (principal)
CPT/HCPCS: 36415; 85610

== ENCOUNTER 2023-06-26 10:46 | Outpatient (REF) | payer MEDICARE, MEDICAID, OTHER, SELFPAY ==
[2023-06-26 13:37] LABS: INTERNATIONAL NORM RATIO 1.8 (0.9-1.1); Prothrombin Time 22.3 SEC (11.1-13.3)
== END 2023-06-26 10:47 | disposition home or self-care (01) ==
LOC: HO.HMGCLR 10:46
PROVIDERS: PCP Internal Medicine; Visit Provider Internal Medicine
DX: I48.91 Unspecified atrial fibrillation (principal)
CPT/HCPCS: 36415; 85610

== ENCOUNTER 2023-07-20 10:06 | Outpatient (REF) | payer MEDICARE, MEDICAID, OTHER, SELFPAY ==
[2023-07-20 14:20] LABS: INTERNATIONAL NORM RATIO 2.2 (0.9-1.1); Prothrombin Time 26.7 SEC (11.1-13.3)
== END 2023-07-20 10:07 | disposition home or self-care (01) ==
LOC: HO.HMGCLR 10:06
PROVIDERS: PCP Internal Medicine; Visit Provider Internal Medicine
DX: I48.91 Unspecified atrial fibrillation (principal)
CPT/HCPCS: 36415; 85610

== ENCOUNTER 2023-07-25 10:01 | Outpatient (REF) | payer MEDICARE, MEDICAID, OTHER, SELFPAY ==
[2023-07-25 13:25] LABS: MANUAL DIFF FLAG NO
[2023-07-25 13:28] LABS: Basophils Absolute Auto 0.1 X10*3/uL (0.0-0.2); Basophils Percent Auto 1.2 % (0-2); Eosinophils Absolute Auto 0.4 X10*3/uL (0.0-0.4); Eosinophils Percent Auto 5.1 % (0-4); Hemoglobin 13.8 g/dl (14.0-18.0); Imm Gran Abs Auto 0.02 X10*3/uL (0.00-0.03); Imm Gran Pct Auto 0.3 % (0.0-0.4); Lymphocytes Absolute Auto 1.8 X10*3/uL (1.2-4.9); Lymphocytes Percent Auto 25.2 % (20-40); Mean Corpuscular HGB Conc 32.1 g/dl (31.0-36.0); Mean Corpuscular Hemoglobin 27.8 pg (27.0-33.0); Mean Corpuscular Volume 86.7 fL (80.0-98.0); Mean Platelet Volume 10.2 fL (9.4-12.4); Monocytes Absolute Auto 0.6 X10*3/uL (0.1-1.2); Monocytes Percent Auto 8.4 % (2-11); Neutrophils Absolute Auto 4.3 x10*3/uL (2.0-8.3); Neutrophils Percent Auto 59.8 % (45-73); Platelet Count 309 X10*3/uL (160-400); Red Blood Count 4.96 X10*6/uL (4.60-5.80); Red Cell Distribution Width 15.2 % (11.0-16.0); White Blood Count 7.2 X10*3/uL (4.8-10.8)
[2023-07-25 14:50] LABS: Alanine Aminotransferase 20 U/L (0-40); Albumin Level 4.1 g/dL (3.5-5.0); Alkaline Phosphatase 65 U/L (39-117); Anion Gap 10 (12-20); Aspartate Amino Transferase 22 U/L (5-37); Bilirubin Total 0.4 mg/dL (0.0-1.0); Blood Urea Nitrogen 23 mg/dL (9-16); Calcium 9.2 mg/dL (8.4-10.2); Carbon Dioxide 27 mmol/L (22-29); Chloride 108 mmol/L (96-108); Cholesterol 160 mg/dL (<200); Estimated Glomerular Filt Rate 44; Glucose Fasting 101 mg/dL (60-99); HDL Cholesterol 44 mg/dL (>40); LDL Cholesterol Calculated 80 mg/dL (<100); Potassium 4.7 mmol/L (3.3-5.1); Sodium 140 mmol/L (135-145); Total Protein 7.9 g/dL (6.5-8.0); Triglycerides 183 mg/dL (<150)
[2023-07-25 15:03] LABS: Prostate Specific Antigen Scr 1.37 ng/mL (<0.05-4.0)
== END 2023-07-25 10:02 | disposition home or self-care (01) ==
LOC: HO.HMGCLDS 10:01
PROVIDERS: PCP Internal Medicine; Visit Provider Internal Medicine
DX: Z00.00 Encounter for general adult medical examination without abnormal findings (principal); Z12.5 Encounter for screening for malignant neoplasm of prostate; R53.83 Other fatigue; E78.5 Hyperlipidemia, unspecified
CPT/HCPCS: 36415; 80053; 80061; 84153; 85025

== ENCOUNTER 2023-08-22 09:53 | Outpatient (REF) | payer MEDICARE, MEDICAID, OTHER, SELFPAY ==
[2023-08-22 13:48] LABS: INTERNATIONAL NORM RATIO 2.5 (0.9-1.1); Prothrombin Time 30.6 SEC (11.1-13.3)
== END 2023-08-22 09:54 | disposition home or self-care (01) ==
LOC: HO.HMGCLR 09:53
PROVIDERS: PCP Internal Medicine; Visit Provider Internal Medicine
DX: I48.91 Unspecified atrial fibrillation (principal)
CPT/HCPCS: 36415; 85610

== ENCOUNTER 2023-09-21 10:14 | Outpatient (REF) | payer MEDICARE, MEDICAID, SELFPAY ==
[2023-09-21 13:46] LABS: INTERNATIONAL NORM RATIO 2.8 (0.9-1.1); Prothrombin Time 34.2 SEC (11.1-13.3)
[2023-09-21 13:51] LABS: Anion Gap 12 (12-20); Blood Urea Nitrogen 26 mg/dL (9-16); Calcium 9.4 mg/dL (8.4-10.2); Carbon Dioxide 25 mmol/L (22-29); Chloride 107 mmol/L (96-108); Estimated Glomerular Filt Rate 37; Glucose Fasting 93 mg/dL (60-99); Sodium 139 mmol/L (135-145)
== END 2023-09-21 10:15 | disposition home or self-care (01) ==
LOC: HO.HMGCLR 10:14
PROVIDERS: PCP Internal Medicine; Visit Provider Internal Medicine
DX: R53.83 Other fatigue (principal); I48.91 Unspecified atrial fibrillation
CPT/HCPCS: 36415; 80048; 85610

== ENCOUNTER 2023-10-22 10:03 | Outpatient (REF) | payer MEDICARE, SELFPAY ==
[2023-10-22 13:44] LABS: INTERNATIONAL NORM RATIO 2.8 (0.9-1.1); Prothrombin Time 33.9 SEC (11.1-13.3)
[2023-10-22 14:04] LABS: Anion Gap 12 (12-20); Blood Urea Nitrogen 18 mg/dL (9-16); Carbon Dioxide 25 mmol/L (22-29); Chloride 109 mmol/L (96-108); Estimated Glomerular Filt Rate 39; Glucose Fasting 65 mg/dL (60-99); Potassium 4.5 mmol/L (3.3-5.1); Sodium 141 mmol/L (135-145)
== END 2023-10-22 10:04 | disposition home or self-care (01) ==
LOC: HO.HMGCLR 10:03
PROVIDERS: PCP Internal Medicine; Visit Provider Internal Medicine
DX: R53.83 Other fatigue (principal); I48.91 Unspecified atrial fibrillation
CPT/HCPCS: 36415; 80048; 85610

== ENCOUNTER 2023-11-21 09:33 | Outpatient (REF) | payer MEDICARE, SELFPAY ==
[2023-11-21 13:31] LABS: INTERNATIONAL NORM RATIO 2.8 (0.9-1.1)
[2023-11-21 13:47] LABS: Anion Gap 13 (12-20); Blood Urea Nitrogen 24 mg/dL (9-16); Calcium 9.4 mg/dL (8.4-10.2); Carbon Dioxide 24 mmol/L (22-29); Chloride 107 mmol/L (96-108); Estimated Glomerular Filt Rate 36; Glucose Random 146 mg/dL (60-115); Potassium 4.1 mmol/L (3.3-5.1); Sodium 140 mmol/L (135-145)
== END 2023-11-21 09:34 | disposition home or self-care (01) ==
LOC: HO.HMGCLR 09:33
PROVIDERS: PCP Internal Medicine; Visit Provider Internal Medicine
DX: R53.83 Other fatigue (principal); I48.91 Unspecified atrial fibrillation
CPT/HCPCS: 36415; 80048; 85610

== ENCOUNTER 2023-12-21 10:21 | Outpatient (REF) | payer MEDICARE, SELFPAY ==
[2023-12-21 13:25] LABS: INTERNATIONAL NORM RATIO 2.8 (0.9-1.1); Prothrombin Time 34.2 SEC (11.1-13.3)
== END 2023-12-21 10:22 | disposition home or self-care (01) ==
LOC: HO.HMGCLR 10:21
PROVIDERS: PCP Internal Medicine; Visit Provider Internal Medicine
DX: R53.83 Other fatigue (principal); I48.91 Unspecified atrial fibrillation
CPT/HCPCS: 36415; 85610

== ENCOUNTER 2024-02-06 09:47 | Outpatient (REF) | payer MEDICARE, MEDICAID, SELFPAY ==
[2024-02-06 13:32] LABS: Prothrombin Time 24.4 SEC (11.1-13.3)
[2024-02-06 14:54] LABS: Anion Gap 11 (12-20); Blood Urea Nitrogen 19 mg/dL (9-16); Carbon Dioxide 26 mmol/L (22-29); Chloride 110 mmol/L (96-108); Estimated Glomerular Filt Rate 45; Glucose Fasting 95 mg/dL (60-99); Potassium 4.7 mmol/L (3.3-5.1); Sodium 142 mmol/L (135-145)
== END 2024-02-06 09:48 | disposition home or self-care (01) ==
LOC: HO.HMGCLR 09:47
PROVIDERS: PCP Internal Medicine; Visit Provider Internal Medicine
DX: R53.83 Other fatigue (principal); I48.91 Unspecified atrial fibrillation
CPT/HCPCS: 36415; 80048; 85610

== ENCOUNTER 2024-02-21 09:53 | Outpatient (REF) | payer MEDICARE, MEDICAID, SELFPAY ==
[2024-02-21 13:11] LABS: INTERNATIONAL NORM RATIO 2.7 (0.9-1.1); Prothrombin Time 31.7 SEC (10.9-12.4)
== END 2024-02-21 09:54 | disposition home or self-care (01) ==
LOC: HO.HMGCLR 09:53
PROVIDERS: PCP Internal Medicine; Visit Provider Internal Medicine
DX: R53.83 Other fatigue (principal); I48.91 Unspecified atrial fibrillation
CPT/HCPCS: 36415; 85610

== ENCOUNTER 2024-02-29 12:34 | Outpatient (REF) | payer MEDICARE, MEDICAID, SELFPAY ==
[2024-02-29 12:46] LABS: MANUAL DIFF FLAG NO
[2024-02-29 12:52] LABS: Basophils Absolute Auto 0.1 X10*3/uL (0.0-0.2); Basophils Percent Auto 1.1 % (0-2); Eosinophils Absolute Auto 0.4 X10*3/uL (0.0-0.4); Hematocrit 31.2 % (42.0-52.0); Imm Gran Abs Auto 0.01 X10*3/uL (0.00-0.03); Imm Gran Pct Auto 0.2 % (0.0-0.4); Lymphocytes Absolute Auto 1.6 X10*3/uL (1.2-4.9); Lymphocytes Percent Auto 25.8 % (20-40); Mean Corpuscular HGB Conc 31.4 g/dl (31.0-36.0); Mean Corpuscular Hemoglobin 26.6 pg (27.0-33.0); Mean Corpuscular Volume 84.8 fL (80.0-98.0); Mean Platelet Volume 9.6 fL (9.4-12.4); Monocytes Absolute Auto 0.6 X10*3/uL (0.1-1.2); Monocytes Percent Auto 10.1 % (2-11); Neutrophils Absolute Auto 3.5 x10*3/uL (2.0-8.3); Neutrophils Percent Auto 55.8 % (45-73); Platelet Count 253 X10*3/uL (160-400); Red Blood Count 3.68 X10*6/uL (4.60-5.80); Red Cell Distribution Width 15.4 % (11.0-16.0); White Blood Count 6.3 X10*3/uL (4.8-10.8)
[2024-02-29 12:53] LABS: Hemoglobin 9.8 g/dl (14.0-18.0)
== END 2024-02-29 12:35 | disposition home or self-care (01) ==
LOC: HO.LAB 12:34
PROVIDERS: PCP Internal Medicine; Visit Provider Internal Medicine
DX: R53.83 Other fatigue (principal)
CPT/HCPCS: 36415; 85025

== ENCOUNTER 2024-03-21 10:16 | Outpatient (REF) | payer MEDICARE, MEDICAID, SELFPAY ==
[2024-03-21 13:45] LABS: INTERNATIONAL NORM RATIO 1.9 (0.9-1.1)
[2024-03-21 14:11] LABS: Anion Gap 14 (12-20); Blood Urea Nitrogen 22 mg/dL (9-16); Calcium 8.9 mg/dL (8.4-10.2); Carbon Dioxide 20 mmol/L (22-29); Chloride 112 mmol/L (96-108); Estimated Glomerular Filt Rate 37; Glucose Fasting 116 mg/dL (60-99); Potassium 4.2 mmol/L (3.3-5.1); Sodium 142 mmol/L (135-145)
== END 2024-03-21 10:17 | disposition home or self-care (01) ==
LOC: HO.HMGCLR 10:16
PROVIDERS: PCP Internal Medicine; Visit Provider Internal Medicine
DX: R53.83 Other fatigue (principal); I48.91 Unspecified atrial fibrillation
CPT/HCPCS: 36415; 80048; 85610

== ENCOUNTER 2024-04-22 10:12 | Outpatient (REF) | payer MEDICARE, MEDICAID, SELFPAY ==
[2024-04-22 14:38] LABS: INTERNATIONAL NORM RATIO 3.4 (0.9-1.1); Prothrombin Time 39.6 SEC (10.9-12.4)
[2024-04-22 18:22] LABS: Anion Gap 14 (12-20); Blood Urea Nitrogen 22 mg/dL (9-16); Calcium 8.5 mg/dL (8.4-10.2); Carbon Dioxide 20 mmol/L (22-29); Chloride 111 mmol/L (96-108); Estimated Glomerular Filt Rate 38; Glucose Fasting 95 mg/dL (60-99); Potassium 4.7 mmol/L (3.3-5.1); Sodium 140 mmol/L (135-145)
== END 2024-04-22 10:13 | disposition home or self-care (01) ==
LOC: HO.HMGCLR 10:12
PROVIDERS: PCP Internal Medicine; Visit Provider Internal Medicine
DX: R53.83 Other fatigue (principal); I48.91 Unspecified atrial fibrillation
CPT/HCPCS: 36415; 80048; 85610

== ENCOUNTER 2024-05-23 09:20 | Outpatient (REF) | payer MEDICARE, MEDICAID, SELFPAY ==
[2024-05-23 10:10] LABS: INTERNATIONAL NORM RATIO 2.8 (0.9-1.1); Prothrombin Time 32.3 SEC (10.9-12.4)
[2024-05-23 10:51] LABS: Anion Gap 11 (12-20); Blood Urea Nitrogen 26 mg/dL (9-16); Calcium 9.1 mg/dL (8.4-10.2); Carbon Dioxide 23 mmol/L (22-29); Chloride 112 mmol/L (96-108); Estimated Glomerular Filt Rate 37; Glucose Random 115 mg/dL (60-115); Potassium 4.7 mmol/L (3.3-5.1); Sodium 141 mmol/L (135-145)
== END 2024-05-23 09:21 | disposition home or self-care (01) ==
LOC: HO.HMGCLR 09:20
PROVIDERS: PCP Internal Medicine; Visit Provider Internal Medicine
DX: R53.83 Other fatigue (principal); I48.91 Unspecified atrial fibrillation
CPT/HCPCS: 36415; 80048; 85610

== ENCOUNTER 2024-07-21 10:09 | Outpatient (REF) | payer MEDICARE, MEDICAID, SELFPAY ==
--- OUTSIDE RECORDS SUMMARY | 2024-07-21 11:41 | XMS_ITS ---
Author Organization [facility] Address [address] [facility] [place] [address] Care Team Providers Care Paper Coating Machine Operator Name Role Phone Jorge Williamson MD Primary Care Provider Unavailab Della Castillo Unavailable [phone] Medications Medication SIG (Take, Route, Frequency, Duration) Notes Start Date End Date Status Farxiga 10 MG Oral for 90 Days Active Tamsulosin HCl 11/21/2023 Acti ve Aspirin Active Entresto 97-103 MG TAKE 1 TABLET BY RICA TH TWICE A DAY FOR 90 DAYS Oral for 90 Days Active Clopidogrel Bisulfate 75 MG TAKE 1 TABLET BY MOUTH EVERY DAY Oral for 90 Days Active Omeprazole 20 MG Oral for 90 Days Active oxyBUTYnin Chloride ER 10 MG Oral for 90 Days Not-Taking Carvedilol 3.125 MG TAKE 1 TABLET BY RICA TH TWICE A DAY Oral for 90 Days Active Warfarin Sodium 5 MG Oral for 90 Days Active Rosuvastatin Calcium 40 MG Oral for 90 Days Active Ciclopirox Olamine 0.77 % 1 application Externally Twice a day for 30 days Active Encounters Encounter Location Date Provider Diagnosis [facility] [address] [place] [address] 06/06/2024 Della Chamberlain Plan Of Treatment Next Appt Details Provider Name:Della van, 09/09/2024 10:00:00 AM, [address] [place], [address], Progress Notes * Jason EISENBERGDOB: [birth year] (69 yo M)Acc No.[id number]:06/06/2024 Progress Note Patient:Jason BOWMAN Provider:?Della Chamberlain DPM :1955???Age:69 Y???Sex:Male Scott e:06/06/2024 Address:[address] [place], [place] [id number] Pcp:Jorge Williamson MD Subjective: * Chief Complaints: * ??? * HPI: ???At Risk footcare:?Pt States Last PCP Visit:?Date?02/19/2024 * Medical History:? * Medications:?Taking Carvedil ol 3.125 MG Tablet TAKE 1 TABLET BY MOUTH TWICE A DAY Oral , Taking Warfarin Sodium 5 MG Tablet Oral , Taking Rosuvastatin Calcium 40 MG Tablet Oral , Taking Omeprazole 20 MG Capsule Delayed Release Oral , Taking Farxiga 10 MG Tablet Oral , Taking Tamsulosin HCl , Taking Aspirin , Taking Entresto 97- 103 MG Tablet TAKE 1 TABLET BY MOUTH TWICE A DAY FOR 90 DAYS Oral , Taking Clopidogrel Bisulfate 75 MG Tablet TAKE 1 TABLET BY MOUTH EVERY DAY Oral , Taking Ciclopirox Olamine 0.77 % Cream 1 application Externally Twice a day , Not-Taking/PRN oxyBUTYnin Chloride ER 10 MG Tablet Extended Release 24 Hour Oral Objective: * Vitals:? Assessment: Plan: * Treatment: * Images: * The named appointment provid er may or may not be the originator of this progress note, and it is not deemed complete until electronically signed by the appointment provider. Sign off status: Pending * Provider:?Della Chamberlain DPM Date:? Generated for Meaghan dumas/Carmen/Nerysmitting on:?07/21/2024 11:41 AM EST History and Physical Notes * HPI (History of Present Illness) Category Sub-Category Detail Notes Category Not es At Risk footcare Pt States Last PCP Visit: Date: 4
--- OUTSIDE RECORDS SUMMARY | 2024-07-21 11:41 | XMS_ITS | Clinical Summary ---
Author Organization [facility] Address [address] [facility] [address] [place] [address] Phone Care Team Providers Care Buffing Machine Tender Name Role Phone Jorge Williamson MD Primary Care Provider [phone] Allergies No known active allergies Medications carvedilol (COREG) 3.125 MG tablet Take 3.125 mg by mouth 2 (two) times a day with meals Active omeprazole (PriLOSEC) [address] capsule Take 20 mg by mouth 1 (one) time each day Do not crush or chew. Active warfarin (COUMADIN) 5 MG tablet Take 5 mg by mouth 1 (one) time each day Take as directed per After Visit Summary. Active rosuvastatin (CRESTOR) 40 MG tablet Take 40 mg by mouth 1 (one) time each day Active aspirin (ST LESLEE) 81 MG EC tablet Take 81 mg by mouth 1 (one) time each day Active clopidogrel (PLAVIX) 75 MG tablet Take 75 mg by mouth 1 (one) time each day Active sacubitril-vals hector (Entresto) 49-51 MG per tablet Take 1 tablet by mouth 2 (two) times a day Active oxybutynin XL (DITROPAN-XL) 10 MG 24 hr tablet Take 10 mg by mouth 1 (one) time each day Do not crush, chew, or split. Active Farxiga 10 MG tablet Take 10 mg by mouth 1 (one) time each day 30 tablet 5 09/18/2022 Active Active Problems Problem Noted Date Diagnosed Date Cirrhosis of liver 01/27/2024 Tobacco dependence syndrome 01/27/2024 Alcohol abuse, not otherwise specified Cardiorenal syndrome 04/28/2021 Acute nontraumatic kidney injury 04/28/2021 Hypertension 04/27/2021 Congestive heart failure 04/27/2021 Peripheral vascular disease 04/27/2021 Stage 3b chronic kidney disease 04/27/2021 Anemia, not otherwise specified 04/27/2021 Social History Tobacco Use Types Packs/Day Years Used Date Smoking Tobacco: Former Cigarettes Smokeless Tobacco: Never Alcohol Use Standard Drinks/Week Comments Yes 0 (1 standard drink = 0.6 oz pur e alcohol) Sex and Gender Information Value Date Recorded Sex Assigned at Not on file Legal Sex Male 11:31 AM EST Gender Identity Not on file Sexual Orientation Not on file Last Filed Vital Signs Vital Sign Reading Time Taken Comments Blood Pressure 122/69 03/26/2024 9:44 AM EST Pulse 78 03/26/2024 9:44 AM EST Temperature - - Respiratory Rate - - Oxygen Saturation 96% 03/26/2024 9:44 AM EST Inhaled Oxygen Concentration - - Weight 70.4 kg (155 lb 3.2 oz) 03/26/2024 9:44 A M EST Height 172.7 cm (5' 8 ) 03/26/2024 9:44 AM EST Body Mass Index 23.6 03/26/2024 9:44 AM EST Plan of Treatment Upcoming Encounters Date Type Department Care Team (Late st Contact Info) Description 09/23/2024 10:00 AM EDT Office Visit [facility] [address] [address] Eligio Simmons MD [address] [address] Health Maintenance Due Date Last Done Comments Colorectal Cancer Screening: Annual FOBT 2003 Colorectal Cancer Screening: Colonoscopy 2003 Colorectal Cancer Screening: Sigmoidoscopy 2003 Pneumococcal Vaccine: 65+ Ye ars (2 of 2 - PPSV23 or PCV20) 04/18/2020 02/22/2020 Influenza Vaccine (#1) 2024 03/08/2006 Hepatitis B Vaccine Aged Out No longe r eligible based on patient's age to complete this topic Insurance [place] Care Teams Buffing Machine Tender Relationship Specialty Start Date End Date Jorge Williamson MD [address] [place] [address] PCP - General Internal Medicine 04/22/21
--- OUTSIDE RECORDS SUMMARY | 2024-07-21 11:41 | XMS_ITS | Patient Health Record ---
Author Organization [facility] Address [address] [facility] [place] [address] Care Team Providers Care Heating Operators Engineer Name Role Phone Jorge Williamson MD Primary Care Provider Unavailab Della Castillo Unavailable [phone] Allergies No Known Allergies Reason For Referral No Information Medications Medication SIG (Take, Route, Frequency, Duration) Notes Start Date End Date Status Carvedilol 3.125 MG TAKE 1 TABLET BY IRCA TH TWICE A DAY Oral for 90 Days Active Warfarin Sodium 5 MG Oral for 90 Days Active Rosuvastatin Calcium 40 MG Oral for 90 Days Active Omeprazole 20 MG Oral for 90 Days Active Entresto 97-103 MG TAKE 1 TABLET BY RICA TH TWICE A DAY FOR 90 DAYS Oral for 90 Days Active Clopidogrel Bisulfate 75 MG TAKE 1 TABLET BY MOUTH EVERY DAY Oral for 90 Days Active Ciclopirox Olamine 0.77 % 1 application Externally Twice a day for 30 days Active oxyBUTYnin Chloride ER 10 MG Oral for 90 Days Not-Taking Farxiga 10 MG Oral for 90 Days Active Tamsulosin HCl 11/21/2023 Acti ve Aspirin Active Immunizations Vaccine Route Administration Date Status Comme nts Influenza Unknown 02/18/2023 Administered Social History Tobacco Use: Social History Observation Description Date Details (start date - stop date) Never Smoker NA - NA Alcohol Screen Question Answer Notes Did you have a drink containing alcohol in the p ast year? No Points 0 Interpretation Negative Tobacco use other than smoking: Question Answer Notes Are you an other tobacco user? No Tobacco Control (Standard) Question Answer Notes Tobacco use: Nonsmoker Problems Problem Type SNOMED Code ICD Code Onset Dates Problem Status W/U Status Risk Notes Problem Atherosclerosis of samish artery of both lower extremities, with unspecified presence of clinical manifestation (I70.203) Active confirmed Vital Signs Blood pressure diastolic 70 mm Hg 06/13/2024 Height 5ft8in in 06/13/2024 Blood pressure systolic 130 mm Hg 06/13/2024 Weight 155 lbs 06/13/2024 BMI 23.57 kg/m2 06/13/2024 Encounters Encounter Location Date Provider Diagnosis [address] [address] 12/07/2023 Della Chamberlain Atherosclerosis of samish artery of both lower extremities, with unspecified presence of clinical manifestation I70.203 ; Tinea unguium B35.1 ; Pain in right toe(s) M79.674 ; Pain in left toe(s) M79.675 and Tinea pedis of both feet B35.[address] [address] 03/07/2024 Della Chamberlain Atherosclerosis of samish artery of both lower extremities, with unspecified presence of clinical manifestation I70.203 ; Tinea unguium B35.1 ; Pain in right toe(s) M79.674 ; Pain in left toe(s) M79.675 and Tinea pedis of both feet B35.[address] [address] 06/13/2024 Della Chamberlain Tinea unguium B35.1 ; Tinea pedis of both feet B35.3 ; Atherosclerosis of samish artery of both lower extremities, with unspecified presence of clinical manifestation I70.203 ; Pain in right toe(s) M79.674 and Pain in left toe(s) M79.[address] [address] 11/21/2023 Della Chamberlain Assessments Encounter Date Diagnosis (ICD Code) Assessment Notes Treatment Notes Treatment Clinical Notes Section Notes 12/07/2023 Tinea unguium (ICD-10 - B35.1) 12/07/2023 Atherosclerosis of samish artery of both lower extremities, with unspecified presence of clinical manifestation (ICD-10 - I70.203) 03/07/2024 Tinea unguium (ICD-10 - B35.1) 03/07/2024 Atherosclerosis of samish artery of both lower extremities, with unspecified presence of clinical manifestation (ICD-10 - I70.203) 06/13/2024 Tinea unguium (ICD-10 - B35.1) 06/13/2024 Tinea pedis of both feet (ICD-10 - B35.3) 06/13/2024 Atherosclerosis of samish artery of both lower extremities, with unspecified presence of clinical manifestation (ICD-10 - I70.203) 12/07/2023 Pain in right toe(s) (ICD-10 - M79.674) 03/07/2024 Pain in right toe(s) (ICD-10 - M79.674) 03/07/2024 Pain in left toe(s) (ICD-10 - M79.675) 12/07/2023 Pain in left toe(s) (ICD-10 - M79.675) 06/13/2024 Pain in right toe(s) (ICD-10 - M79.674) 06/13/2024 Pain in left toe(s) (ICD-10 - M79.675) 03/07/2024 Tinea pedis of both feet (ICD-10 - B35.3) 12/07/2023 Tinea pedis of both feet (ICD-10 - B35.3) Plan Of Treatment Next Appt Details Provider Name:Della van, 09/09/2024 10:00:00 AM, [address] [place] [address], [phone], Insurance Providers Payer Name Payer Address Payer Phone Subscriber Number Group Number Insured Name Patient Relationship to Insured Coverage Start Date Coverage End Date Medicare [employer] [address] [place] [address] [id number] Jason Chaudhry Self - patient is the insured Medical (General) History Medical History History ICD Code Cataracts High blood pressure Kidney disease Liver disease Poor circulation Reflux ( GERD) Vascular phlebitis (clots) Measles Mumps Chicken pox Vascular grafts Surgical History Surgery Date(Month/Year) vascular surgery bypass surgery Left leg balloon angio by [facility] 2 213
--- OUTSIDE RECORDS SUMMARY | 2024-07-21 11:41 | XMS_ITS ---
Author Organization [facility] [place] Address [address] [place] [address] Care Team Providers Care Log Getter Name Role Phone Jorge Williamson MD Primary Care Provider Unavailab Della Castillo Unavailable [phone] Allergies No Known Allergies REASON FOR VISIT At Risk Footcare, Painful Nail(s) aggravated by shoes and causing difficulty standing/walking., Skin Problem Medications Medication SIG (Take, Route, Frequency, Duration) Notes Start Date End Date Status Entresto 97-103 MG TAKE 1 TABLET BY RICA TH TWICE A DAY FOR 90 DAYS Oral for 90 Days Active Aspirin Active Ciclopirox Olamine 0.77 % 1 application Externally Twice a day for 30 days Active Clopidogrel Bisulfate 75 MG TAKE 1 TABLET BY MOUTH EVERY DAY Oral for 90 Days Active oxyBUTYnin Chloride ER 10 MG Oral for 90 Days Not-Taking Warfarin Sodium 5 MG Oral for 90 Days Active Omeprazole 20 MG Oral for 90 Days Active Rosuvastatin Calcium 40 MG Oral for 90 Days Active Tamsulosin HCl 11/21/2023 Acti ve Farxiga 10 MG Oral for 90 Days Active Carvedilol 3.125 MG TAKE 1 TABLET BY RICA TH TWICE A DAY Oral for 90 Days Active Social History Tobacco Use: Social History Observation Description Date Details (start date - stop date) Former Smoker NA - NA Tobacco Use/Smoking Question Answer Notes Are you a: former smoker Additional Findings: Tobacco Non-User Current no n-smoker Alcohol Screen Question Answer Notes Did you have a drink containing alcohol in the p ast year? No Points 0 Interpretation Negative Tobacco use other than smoking: Question Answer Notes Are you an other tobacco user? No Vital Signs Height 5ft 8in in 03/07/2024 Weight 155 lbs 03/07/2024 BMI 23.57 kg/m2 03/07/2024 Encounters Encounter Location Date Provider Diagnosis [facility] [address] [address] 03/07/2024 Della Chamberlain Atherosclerosis of cantwell artery of both lower extremities, with unspecified presence of clinical manifestation I70.203 ; Tinea unguium B35.1 ; Pain in right toe(s) M79.674 ; Pain in left toe(s) M79.675 and Tinea pedis of both feet B35.3 Assessments Encounter Date Diagnosis (ICD Code) Assessment Notes Treatment Notes Treatment Clinical Notes Section Notes 03/07/2024 Atherosclerosis of cantwell artery of both lower extremities, with unspecified presence of clinical manifestation (ICD-10 - I70.203) 03/07/2024 Tinea unguium (ICD-10 - B35.1) 03/07/2024 Pain in right toe(s) (ICD-10 - M79.674) 03/07/2024 Pain in left toe(s) (ICD-10 - M79.675) 03/07/2024 Tinea pedis of both feet (ICD-10 - B35.3) Plan Of Treatment Next Appt Details Follow Up: 3 Months, Reason: Provider Name:Della Roman van, 09/09/2024 10:00:00 AM, [address] [place] [address], [id number], Procedure Notes * Category Sub-Category Detail Notes Debride Nail 6-10 Nail debridement Nail debridem ent performed extensively to reduce/remove overall nail length, girth, thickness, subungual debris, and necrotic tissue, by manual and electrical means through the use of a nail nipper and/or dremel, to more viable healthy nail plate or bed tissue 1-5. Silver nitrate used for any petechial bleeding as necessary. Patient chooses, no pharmaceutical tx (22130) Keratoma Treatment Parring or Cutting o f Benign Hyperkeratotic Lesion(s) (-56) 2-4 Lesions - The Benign hyperkeratotic lesions, as described above were pared, and/or cut utilizing a sterile 15 blade, tissue nippers, and/[facility] [address] Q8, Progress Notes * Jason EISENBERGDOB: [birth year] (68 yo M)Acc No.[id number]:03/07/2024 Progress Note Patient:Jason Bates Provider:?Della Chamberlain DPM :1955???Age:68 Y???Sex:Male Scott e:03/07/2024 Address:[address] [place] [address] [address] [facility] Pcp:Jorge Williamson MD Subjective: * Chief Complaints: * ???At Risk FootcarePainful N ail(s) aggravated by shoes and causing difficulty standing/walking.Skin Problem * HPI: ???At Risk footcare:?Pt States Last PCP Visit:?Date?02/19/2024 ???Skin problems:?Nature:?scaling , redness.?Location:?B/L .?Course:?improved.?Treatments:?Medication (Ciclopirox Olamine 0.77 Cream).? * ROS:?General/Constitutional:?Nausea?denies, denies.?Vomiting?denies, denies.?Hunger Thirst?denies, denies.?Loss appetite?denies, denies.?Chills?denies, denies.?Fatigue?denies, denies.?Fever?denies, denies.?Night Sweats denies, denies.?Unexplained weight loss?denies, denies.?Unexplained weight gain?denies, denies.?HEENTM:?Dentures?denies.?Dizziness?denies.?Glasses/contacts?denies.?Retinopathy?de nies.?Blurred/double vision?denies.?TMJ?denies.?Discharge/drainage?denies.?Implants?denies.?Sore throat?denies.?Dental implants?denies.?Hard of hearing ?denies.?Difficulty chewing/swallowing/speaking?denies.?Nose bleeds?denies.?Sore mouth?denies.?Respiratory:?On Oxygen?denies.?Pneumonia/pleurisy?denies.?Bronchitis?denies.?Emphysema?denies.?C oughing?denies.?Cough blood?denies.?Shortness of breath?denies.?Wheezing?denies.?Cardiovascular:?Pacemaker?denies.?MVP?denies.?WPW?denies.?CHF?denies.?Heart attack?denies.?Septal defect?denies.?Rapid beat?denies.?Chest pain ?denies.?Atrial Fib.?denies.?Murmur/Palpitations?denies.?Gastrointestinal:?Hemorrhoids?denies.?Stomach/Abdominal pain?denies.?Dark blood stool?denies.?Irritable bowel ?denies.?Constipation?denies.?Diarrhea?denies.?Hematology:?Swelling?denies.?Clots?denies.?Varicose Veins?denies.?Bruising?denies.?Bleeding problem?denies.?Genitourinary:?Blood urine?denies.?Frequent/Painfu/urination/bladder control?denies.?Kidney stones?denies.?Infection (UTI)?denies.?Nephropathy?denies.?sex trans dis (STD)?denies.?Prostate?denies.?Musculoskeletal:?Hammertoes?denies.?Bunions?denies.?Back Pain?denies.?Muscle Cramps/ Resting?denies.?Muscle cramps / walking?denies.?Generalized aches and pains?denies.?Weakness?denies.?Integ.:?Bailey?denies.?Scars?denies.?Corns/calluses?denies.?Ingrown nails?denies.?Painful nails?denies.?Open Sores?denies.?Rashes?denies.?Neurologic:?Difficulty sleeping?denies.?Brain disorder?denies.?Numbness?denies.?Balance trouble?denies.?Confusion?denies.?Fainting/blackouts?denies.?Tingling?denies.?Tr emors?denies.? * Medical History:? * Surgical History:?vascular s urgery bypass surgery Left leg balloon angio by [facility] 2023 * Hospitalization/Major Diagno stic Procedure:?Denies Past Hospitalization * Family History:?Mother: dece ased, diabetes, stroke, heart attack, high blood pressure.?Father: , heart attack.?Paternal Grand Mother: cancer.?Paternal Grand Father: cancer.?Maternal Grand Mother: cancer.?Maternal Grand Father: cancer.?Siblings: defects, poor circulation.? * Social History:?Tobacco Use:?Tobacco Use/Smoking?Are you a:?former smoker ?Additional Findings: Tobacco Non-User?Current non-smoker ?Tobacco use other than smoking?Are you an other tobacco user??No ???Drugs/Alcohol:?Drugs?Have you used drugs other than those for medical reasons in the past 12 months??Yes ?Marijuana??Yes smoke ?Alcohol Screen?Did you have a drink containing alcohol in the past year??No ?Points?0 ?Interpretation?Negative ???Miscellaneous:?no Caffeine. ?no Children. ?no Exercise. ?Marital status: . ?Occupation: Unemployed. * Medications:?TakingCarvedilo l 3.125 MG Tablet TAKE 1 TABLET BY MOUTH TWICE A DAY Oral Warfarin Sodium 5 MG Tablet Oral Rosuvastatin Calcium 40 MG Tablet Oral Omeprazole 20 MG Capsule Delayed Release Oral Farxiga 10 MG Tablet Oral Tamsulosin HCl Aspirin Entresto 97-103 MG Tablet TAKE 1 TABLET BY MOUTH TWICE A DAY FOR 90 DAYS Oral Clopidogrel Bisulfate 75 MG Tablet TAKE 1 TABLET BY MOUTH EVERY DAY Oral Ciclopirox Olamine 0.77 % Cream 1 application Externally Twice a dayTaking Carvedilol 3.125 MG Tablet TAKE 1 TABLET BY MOUTH TWICE A DAY Oral Taking Warfarin Sodium 5 MG Tablet Oral Taking Rosuvastatin Calcium 40 MG Tablet Oral Taking Omeprazole 20 MG Capsule Delayed Release Oral Taking Farxiga 10 MG Tablet Oral Taking Tamsulosin HCl Taking Aspirin Taking Entresto 97-103 MG Tablet TAKE 1 TABLET BY MOUTH TWICE A DAY FOR 90 DAYS Oral Taking Clopidogrel Bisulfate 75 MG Tablet TAKE 1 TABLET BY MOUTH EVERY DAY Oral Taking Ciclopirox Olamine 0.77 % Cream 1 application Externally Twice a dayNot-Taking/PRNoxyBUTYnin Chloride ER 10 MG Tablet Extended Release 24 Hour Oral Medication List reviewed and reconciled with the patientNot-Taking/PRN oxyBUTYnin Chloride ER 10 MG Tablet Extended Release 24 Hour Oral Medication List reviewed and reconciled with the patient * Allergies:?N.K.D.A.yes[Aller gies Verified] Objective: * Vitals:?Ht: 5ft 8in, Wt:155, BMI:23.57, Shoe size: 8, Ht-cm: 172.72 cm, Wt-k.31 kg. * Examination: ???Vascular: ?DP PULSES(B):? 0/4, B/L.?PT PULSES(B):? 0/4, B/L.?CAPILLARY FILL TIME:? delayed, all digits, B/L.?TROPHIC CONDITION-TEXTURE/ELASTICITY/TURGOR/HAIR GROWTH(B):? decreased, B/L.?TEMPERTURE GRADIENT(C):? decreased, cool to cool, proximal to distal, B/L.?PIGMENTATION:? brawny, B/L.?CLAUDICATION(C):?denies, B/L.?REST PAIN:?denies, B/L.?Nails: ?NAILS are:? Elongated, overgrown, dystrophic, lytic, greater than 3mm thick, discolored and friable with crumbly malodorous subungual debris, with pain on palpation 1-5 B/L.?Dermatologic: ?SKIN FINDINGS:? Skin exam reveals Keratotic lesion(s) located at TA, T5,Heel(s), Skin shows approximately _70__% LESS, sign(s) of, erythema, scaling, in a moccasin fashion, no fissure(s) present, B/L.?Orthopedic: ?MUSCLE STRENGTH:?5/5 all groups in a symmetrical fashion, B/L.?Neurological: ?SENSORY:?Neurological exam reveals intact sensorium, pain sensation normal, vibration sensation intact, pinprick sensation is normal in the lower extremities, Pt denies, anesthesia, burning, paresthesia, tingling, B/L.?General Examination: ?GENERAL APPEARANCE:?Reveals a pleasant, alert, well nourished, well- developed, well hydrated individual, who demonstrates proper attention to hygiene/body habitus, and is in no acute distress, Pt serves as own historian for office visit today.?ORIENTED:?person, place, and time.? Assessment: * Assessment: 1.?Tinea unguium - B35.1 (Pr imary)?2.?Atherosclerosis of cantwell artery of both lower extremities, with unspecified presence of clinical manifestation - I70.203?3.?Pain in right toe(s) - M79.674?4.?Pain in left toe(s) - M79.675?5.?Tinea pedis of both feet - B35.3, Acute problem, Uncomplicated (3),Rx drug management (4)? Plan: * Treatment: * Procedures:?Debride Nail 6-10:?Nail debridement?Nail debridement performed extensively to reduce/remove overall nail length, girth, thickness, subungual debris, and necrotic tissue, by manual and electrical means through the use of a nail nipper and/or dremel, to more viable healthy nail plate or bed tissue 1-5. Silver nitrate used for any petechial bleeding as necessary. Patient chooses, no pharmaceutical tx (83490).?Keratoma Treatment:?Parring or Cutting of Benign Hyperkeratotic Lesion(s)?(-56) 2-4 Lesions - The Benign hyperkeratotic lesions, as described above were pared, and/or cut utilizing a sterile 15 blade, tissue nippers, and/or dremel - 38111 Q8, ?.? * Procedure Codes:?83401 DEBRI DE NAIL, 6 OR MORE, Modifiers: XS 78354 TRIM SKIN LESIONS, 2 TO 4, Modifiers: XS , Q8 * Preventive Medicine:? ??Counseling:?Discussion:?-13: Office or other outpatient visit for the evaluation and management of an established patient, which required a medically appropriate history and/or examination and LOW level of DECISION MAKING for: 1 STABLE ACUTE UNCOMPLICATED PROBLEM, 2 OR MORE MINOR PROBLEMS, OR 1 STABLE CHRONIC PROBLEM, THAT POSE(S) A LOW RISK FOR MORBIDITY/MORTALITY. The visit on the day of the encounter encompassed interpreting the data and educating the patient as to the nature of their condition, treatment options available according to their individual PMH, meds, allergies, and overall health/living conditions, as well as any potential risks or complications that may occur from a failure to adhere to, and participate in, the recommended course of therapy. The discussion included a complete verbal, and/or written explanation of the examination results, any x-rays taken, the proposed diagnosis, and outline of the treatment plan. A schedule for future care needs was also explained. The patient verbalized an understanding of the instructions at this time and agreed to be an active participant in their treatment. If the patient should think of any questions or concerns after the visit, I have encouraged the patient to call the office.?Tinea Pedis:?Given recent successful results to treatment, The patient is to cont the rx cream as directed.? * Follow Up:?3 Months * Images: * Sign off status: Completed true * Provider:?Della Chamberlain, KIYA Date:? Generated for Meaghan dumas/Carmen/Benjamin on:?07/21/2024 11:41 AM EST History and Physical Notes * HPI (History of Present Illness) Category Sub-Category Detail Notes Category Not es Skin problems Nature: scaling , redness Location: B/L Course: improved Treatments: Medication (Ciclopir ox Olamine 0.77 Cream) At Risk footcare Pt States Last PCP Visit: Date: Examination Category Sub-Category Detail Notes Category Not es Neurological SENSORY: Neurological exa m reveals intact sensorium, pain sensation normal, vibration sensation intact, pinprick sensation is normal in the lower extremities, Pt denies, anesthesia, burning, paresthesia, tingling, B/L Dermatologic SKIN FINDINGS: Skin exam reveal s Keratotic lesion(s) located at TA, T5,Heel(s), Skin shows approximately _70__% LESS, sign(s) of, erythema, scaling, in a moccasin fashion, no fissure(s) present, B/L Orthopedic MUSCLE STRENGTH: 5/5 all groups in a symmetrical fashion, B/L General Examination GENERAL APPEARANCE: Reveals a pleasant, alert, well nourished, well-developed, well hydrated individual, who demonstrates proper attention to hygiene/body habitus, and is in no acute distress, Pt serves as own historian for office visit today ORIENTED: person, place, and t [facility] DP PULSES (B): 0/4, B/L PT PULSES (B): 0/4, B/L CAPILLARY FILL TIME: delayed, all digits , B/L TEMPERTURE GRADIENT (C): decreased, cool to cool, proximal to distal, B/L TROPHIC CONDITION-TEXTURE/ELASTICITY/TURGOR/HAIR GROWTH (B): decreased, B/L CLAUDICATION (C): denies, B/L REST PAIN: denies, B/L PIGMENTATION: brawny, B/L Nails NAILS are: Elongated, overg rown, dystrophic, lytic, greater than 3mm thick, discolored and friable with crumbly malodorous subungual debris, with pain on palpation 1-5 B/L
--- OUTSIDE RECORDS SUMMARY | 2024-07-21 11:42 | XMS_ITS ---
Author Organization [facility] [place] bosch [place] Address [address] [place] [address] Care Team Providers Care Television [employer] Photographer Name Role Phone Jorge Williamson MD Primary Care Provider Unavailab Della Castillo Unavailable [phone] Allergies No Known Allergies REASON FOR VISIT [...] 10 MG Oral for 90 Days Not-Taking Aspirin Active Warfarin Sodium 5 MG Oral for 90 Days Active Rosuvastatin Calcium 40 MG Oral for 90 Days Active Omeprazole 20 MG Oral for 90 Days Active Farxiga 10 MG Oral for 90 Days Active Tamsulosin HCl 11/21/2023 Acti ve Carvedilol 3.125 MG TAKE 1 TABLET BY [...] (Standard) Question Answer Notes Tobacco use: Nonsmoker Vital Signs Height 5ft8in in 06/13/2024 Weight 155 lbs 06/13/2024 BMI 23.57 kg/m2 06/13/2024 Blood pressure systolic 130 mm Hg 06/13/19 25 Blood pressure diastolic 70 mm Hg 025 Encounters Encounter Location Date Provider Diagnosis [facility] [address] [address] 06/13/2024 Della Madelynrehan Tinea unguium B35.1 ; Tinea pedis of both feet B35.3 ; Atherosclerosis of [place] artery of both lower extremities, with unspecified presence of clinical manifestation I70.203 ; Pain in right toe(s) M79.674 and Pain in left toe(s) M79.675 Assessments Encounter Date Diagnosis (ICD Code) Assessment Notes Treatment Notes Treatment Clinical Notes Section Notes 06/13/2024 Tinea unguium (ICD-10 - B35.1) 06/13/2024 Tinea pedis of both feet (ICD-10 - B35.3) 06/13/2024 Atherosclerosis of [place] artery of both lower extremities, with unspecified presence of clinical manifestation (ICD-10 - I70.203) 06/13/2024 Pain in right toe(s) (ICD-10 - M79.674) 06/13/2024 Pain in left toe(s) (ICD-10 - M79.675) Plan Of Treatment Next Appt Details Follow Up: 3 Months, Reason: Provider Name:Della van, 09/09/2024 10:00:00 AM, [address] [place] [address], [phone], Procedure Notes * Category Sub-Category Detail Notes Debride Nail 6-10 Nail debridement Due to the cl inical pathology outlined in the exam findings, performance of this nail treatment is medically necessary as its management by an unskilled/untrained nonprofessional would put this patients foot and overall health at risk. Therefore, debridement to affected nail(s), as described in exam ( TA, T1, T2, T3, T4, T5, T6, T7, T8, T9, ), was performed exclusively by the physician of record to reduce/remove overall nail length, girth, thickness, subungual debris, and necrotic tissue, by manual and/or electrical means through the use of a nail nipper and/or dremel-type knife setter grinder machine, to a more viable healthy nail plate or bed tissue 6-10 nails in total. Silver nitrate was used for any petechial bleeding as necessary. Definitive antifungal treatment options, both pharmaceutical and surgical, have been reviewed and discussed with the patient. The patient solely prefers the use of intermittent/as needed professional debridement services for their nail condition and understands the need for additional periodic treatments to maintain effectiveness in symptomatic relief - 22342 Keratoma Treatment Parring or Cutting o f Benign Hyperkeratotic Lesion(s) (-56) 2-4 Lesions - Due to the at risk nature of the patients medical condition as documented in the exam findings, performance of this keratoderma treatment is medically necessary as its management by an unskilled/untrained nonprofessional would put this patients foot and overall health at risk. Therefore, the benign hyperkeratotic lesions, ( 4 ) in total, locations as stated and described in the exam ( TA, T5,Heel(s), B/), were pared, and/or cut utilizing a sterile 15 blade, tissue nippers, and/or power dremel instrumentation by the physician of record - 66224 Progress Notes * Jason EISENBERGDOB: [birth year] (69 yo M)Acc No.[id number]:06/13/2024 Progress Note Patient:?Jason EISENBERG Provider:?Della Chamberlain DPM :1955???Age:69 Y???Sex:Male Scott e:06/13/2024 Address:[address] [place], [place] [id number] Pcp:Jorge Williamson MD Subjective: * Chief Complaints: * ???At Risk FootcarePainful N ail(s) aggravated by shoes and causing difficulty standing/walking.Skin Problem * HPI: ???At Risk footcare:?Pt States Last PCP Visit:?Date?02/19/2024 ???Skin problems:?Nature:?scaling , redness.?Location:?B/L .?Course:?improved.?Treatments:?Medication (Ciclopirox Olamine 0.77 Cream).? * ROS:?General/Constitutional:?Nausea?denies, denies, denies.?Vomiting?denies, denies, denies.?Hunger Thirst?denies, denies, denies.?Loss appetite?denies, denies, denies.?Chills?denies, denies, denies.?Fatigue?denies, denies, denies.?Fever?denies, denies, denies.?Night Sweats?denies, denies, denies.?Unexplained weight loss?denies, denies, denies.?Unexplained weight gain?denies, denies, denies.?HEENTM:?Dentures?admits, denies.?Dizziness?denies, denies.?Glasses/contacts?admits, denies.?Retinopathy?denies, denies.?Blurred/double vision?denies, denies.?TMJ?denies, denies.?Discharge/drainage?denies, denies.?Implants?denies, denies.?Sore throat?denies, denies.?Dental implants?denies, denies.?Hard of hearing ?denies, denies.?Difficulty chewing/swallowing/speaking?denies, denies.?Nose bleeds?denies, denies.?Sore mouth?denies, denies.?Respiratory:?On Oxygen?denies, denies.?Pneumonia/pleurisy?denies, denies.?Bronchitis?denies, denies.?Emphysema?denies, denies.?Coughing?denies, denies.?Cough blood?denies, denies.?Shortness of breath?denies, denies.?Wheezing?denies, denies.?Cardiovascular:?Pacemaker?denies, denies.?MVP?denies, denies.?WPW?denies, denies.?CHF?denies, denies.?Heart attack?admits, denies.?Septal defect?denies, denies.?Rapid beat?denies, denies.?Chest pain ?denies, denies.?Atrial Fib.?denies, denies.?Murmur/Palpitations?denies, denies.?Gastrointestinal:?Hemorrhoids?denies, denies.?Stomach/Abdominal pain?denies, denies.?Dark blood stool?denies, denies.?Irritable bowel ?denies, denies.?Constipation?denies, denies.?Diarrhea?denies, denies.?Hematology:?Swelling?denies, denies.?Clots?denies, denies.?Varicose Veins?denies, denies.?Bruising?denies, denies.?Bleeding problem?denies, denies.?Genitourinary:?Blood urine?denies, denies.?Frequent/Painfu/urination/bladder control?denies, denies.?Kidney stones?denies, denies.?Infection (UTI)?denies, denies.?Nephropathy?denies, denies.?sex trans dis (STD)?denies, denies.?Prostate?admits, denies.?Musculoskeletal:?Hammertoes?denies, denies.?Bunions?denies, denies.?Back Pain?denies, denies.?Muscle Cramps/ Resting?denies, denies.?Muscle cramps / walking?denies, denies.?Generalized aches and pains?denies, denies.?Weakness?denies, denies.?Integ.:?Bailey?denies, denies.?Scars?denies, denies.?Corns/calluses?denies, denies.?Ingrown nails?denies, denies.?Painful nails?denies, denies.?Open Sores?denies, denies.?Rashes?denies, denies.?Neurologic:?Difficulty sleeping?denies, denies.?Brain disorder?denies, denies.?Numbness?denies, denies.?Balance trouble?admits, denies.?Confusion?denies, denies.?Fainting/blackouts?denies, denies.?Tingling?denies, denies.?Tremors?denies, denies.? * Medical History:? * Surgical History:?vascular s urgery bypass surgery Left leg balloon angio by [facility] 2023 * Hospitalization/Major Diagno stic Procedure:?Denies Past Hospitalization * Family History:?Mother: dece ased, diabetes, stroke, heart attack, high blood pressure.?Father: , heart attack.?Paternal Grand Mother: cancer.?Paternal Grand Father: cancer.?Maternal Grand Mother: cancer.?Maternal Grand Father: cancer.?Siblings: defects, poor circulation.? * Social History:?Tobacco Use:?Tobacco use other than smoking?Are you an other tobacco user??No ?Tobacco Control (Standard)?Tobacco use:?Nonsmoker ???Drugs/Alcohol:?Drugs?Have you used drugs other than those for medical reasons in the past 12 months??Yes ?Marijuana??Yes smoke ?Alcohol Screen?Did you have a drink containing alcohol in the past year??No ?Points?0 ?Interpretation?Negative ???Miscellaneous:?Caffeine: no. ?Children: no. ?Exercise: no. ?Marital status: . ?Occupation: Unemployed. * Medications:?TakingCarvedilo [...] Cream 1 application Externally Twice a day Taking Carvedilol 3.125 MG Tablet TAKE 1 TABLET [...] Cream 1 application Externally Twice a day Not-Taking/PRNoxyBUTYnin Chloride ER 10 MG Tablet Extended Release 24 Hour Oral Medication List reviewed and reconciled with the patientNot-Taking/PRN oxyBUTYnin Chloride ER 10 MG Tablet Extended Release 24 Hour Oral Medication List reviewed and reconciled with the patient * Allergies:?N.K.D.A.yes[Aller gies Verified] Objective: * Vitals:?Ht: 5ft8in, Wt:155, BMI:23.57, Shoe size: 8, BP:130/70mm Hg, BS: not taken, Ht-cm: 172.72 cm, Wt-k.31 kg. * Examination: ???Vascular: ?DP PULSES (B):? 0/4, B/L.?PT PULSES (B):? 0/4, B/L.?CAPILLARY FILL TIME:? delayed, all digits, B/L.?TROPHIC CONDITION-TEXTURE/ELASTICITY/TURGOR/HAIR GROWTH (B):? decreased, B/L.?TEMPERTURE GRADIENT (C):? decreased, cool to cool, proximal to distal, B/L.?PIGMENTATION:? brawny, B/L.?CLAUDICATION (C):?denies, B/L.?REST PAIN:?denies, B/L.?Nails: ?NAILS are:? Elongated, overgrown, dystrophic, lytic, greater than 3mm thick, discolored and friable with crumbly malodorous subungual debris, with pain on palpation, TA, T1, T2, T3, T4, T5, T6, T7, T8, T9.?Dermatologic: ?SKIN FINDINGS:? Skin exam reveals Keratotic lesion(s) located at TA, T5,Heel(s), B/L?? Skin shows approximately _80__% LESS, sign(s) of, erythema, scaling, in a moccasin fashion, no fissure(s) present, B/L.?Neurological: ?SENSORY:?Neurological exam reveals intact sensorium, pain sensation normal, vibration sensation intact, pinprick sensation is normal in the lower extremities, Pt denies, anesthesia, burning, paresthesia, tingling, B/L.? Assessment: * Assessment: 1.?Tinea unguium - B35.1???2 .?Tinea pedis of both feet - B35.3 (Primary)???Specify :Acute problem, Uncomplicated?3.?Atherosclerosis of [place] artery of both lower extremities, with unspecified presence of clinical manifestation - I70.203???4.?Pain in right toe(s) - M79.674???5.?Pain in left toe(s) - M79.675??? Plan: * Treatment: * Procedures:?Debride Nail 6-10:?Nail debridement?Due to the clinical pathology outlined in the exam findings, performance of this nail treatment is medically necessary as its management by an unskilled/untrained nonprofessional would put this patients foot and overall health at risk. Therefore, debridement to affected nail(s), as described in exam ( TA, T1, T2, T3, T4, T5, T6, T7, T8, T9, ), was performed exclusively by the physician of record to reduce/remove overall nail length, girth, thickness, subungual debris, and necrotic tissue, by manual and/or electrical means through the use of a nail nipper and/or dremel-type knife setter grinder machine, to a more viable healthy nail plate or bed tissue 6- 10 nails in total. Silver nitrate was used for any petechial bleeding as necessary. Definitive antifungal treatment options, both pharmaceutical and surgical, have been reviewed and discussed with the patient. The patient solely prefers the use of intermittent/as needed professional debridement services for their nail condition and understands the need for additional periodic treatments to maintain effectiveness in symptomatic relief - [id number].?Keratoma Treatment:?Parring or Cutting of Benign Hyperkeratotic Lesion(s)?(-56) 2-4 Lesions - Due to the at risk nature of the patients medical condition as documented in the exam findings, performance of this keratoderma treatment is medically necessary as its management by an unskilled/untrained nonprofessional would put this patients foot and overall health at risk. Therefore, the benign hyperkeratotic lesions, ( 4 ) in total, locations as stated and described in the exam (?TA, T5,Heel(s), B/), were pared, and/or cut utilizing a sterile 15 blade, tissue nippers, and/or power dremel instrumentation by the physician of record - [id number].? * Procedure Codes:?03501 DEBRI DE NAIL, 6 OR MORE, Modifiers: XS 47829 TRIM SKIN LESIONS, 2 TO 4, Modifiers: XS , Q8 * Preventive Medicine:? ??Counseling:?Discussion:?-12: Office or other outpatient visit for the evaluation and management of an established patient, which required a medically appropriate history and/or examination and STRAIGHTFORWARD level of MEDICAL DECISION MAKING, 1 SELF-LIMITED OR MINOR PROBLEM, MINIMAL- NO AMOUNT/COMPLEXITY OF DATA TO BE REVIEWED/ANALYZED, AND MINIMAL RISK OF COMPLICATION/MORBIDITY. The visit on the day of the [...] * Sign off status: Completed true * Provider:?BRENDAN YanM Date:? Generated for Meaghan dumas/Carmen/Benjamin on:?07/21/2024 11:41 AM EST History and Physical Notes * HPI (History of Present Illness) Category Sub-Category Detail Notes Category Not es Skin problems Nature: scaling , redness Location: B/L Course: improved Treatments: Medication (Ciclopir ox Olamine 0.77 Cream) At Risk footcare Pt States Last PCP Visit: Date: 4 Examination Category Sub-Category Detail Notes Category Not es Neurological SENSORY: Neurological exa m reveals intact sensorium, pain sensation normal, vibration sensation intact, pinprick sensation is normal in the lower extremities, Pt denies, anesthesia, burning, paresthesia, tingling, B/L Dermatologic SKIN FINDINGS: Skin exam reveal s Keratotic lesion(s) located at TA, T5,Heel(s), B/L Skin shows approximately _80__% LESS, sign(s) of, erythema, scaling, in a moccasin fashion, no fissure(s) present, B/L Vascular DP PULSES (B): 0/4, B/L PT [...] crumbly malodorous subungual debris, with pain on palpation, TA, T1, T2, T3, T4, T5, T6, T7, T8, T9
[2024-07-21 13:23] LABS: Anion Gap 12 (12-20); Blood Urea Nitrogen 12 mg/dL (9-16); Calcium 8.9 mg/dL (8.4-10.2); Carbon Dioxide 23 mmol/L (22-29); Chloride 111 mmol/L (96-108); Estimated Glomerular Filt Rate 49; Glucose Fasting 144 mg/dL (60-99); Sodium 142 mmol/L (135-145)
[2024-07-21 13:25] LABS: Prothrombin Time 11.3 SEC (10.9-12.4)
== END 2024-07-21 10:10 | disposition home or self-care (01) ==
LOC: HO.HMGCLR 10:09
PROVIDERS: PCP Internal Medicine; Visit Provider Internal Medicine
DX: R53.83 Other fatigue (principal); I48.91 Unspecified atrial fibrillation
CPT/HCPCS: 36415; 80048; 85610